=== PATIENT | female | born 1945 | race Caucasian/White ===

== ENCOUNTER 2016-11-02 10:01 | Emergency (ER) | payer MEDICARE, MEDICAID ==
[2016-11-02] MEDS: Sodium Chloride 0.9% 10 ML Syringe FLUSH PRN (10:30)
--- NOTE | 2016-11-02 11:12 | EDM.PDOC ---
ED HISTORY OF PRESENT ILLNESS - General Chief Complaint: Cardiovascular Problem Stated Complaint: [facility] Time Seen by Provider: 11/02/16 10:20 Source of Information: Reports: Patient, EMS, Other ([place] staff) - History of Present Illness INITIAL COMMENTS - FREE TEXT/NARRATIVE: 71-year-old female has been sent here by ambulance for evaluation of increased heart rate and also elevated blood pressure. Apparently her blood pressure has been running in the 180-220 range systolic. she is reported to have not been feeling well last evening sore vitals were checked. Initial blood pressure was 220/100 and then had followup readings of around 200 and 190/100. Rate is reported to have been running greater than 100 although upon EMS arrival she was in the upper 80s. She does have history of hypertension, renal failure on dialysis. Her last dialysis run was yesterday. SHe has no complaints of chest pain difficulty breathing, or abdominal pain nausea vomiting headache or other unusual symptomatology. She states she was coughing a bit more yesterday than usual but that seems to be better today. No recent fever or chills. - Related Data Allergies/ADRs: Allergies Allergy/AdvReac Type Severity Reaction Status Date / Time No Known Allergies Allergy Verified 10/18/16 16:51 Home Meds: Home Meds Cinacalcet [Sensipar] 90 mg PO DAILY 04/30/14 [History] Citalopram [Citalopram HBr] 20 mg PO DAILY 04/30/14 [History] ClonazePAM [KlonoPIN] 0.5 mg PO Q6H PRN 04/30/14 [History] Gabapentin [Neurontin] 400 mg PO TID 04/30/14 [History] Hydrocodone/Acetaminophen [Hydrocodone-Acetaminophen 5-325] 1 tab PO Q6H PRN [History] Ranitidine HCl 300 mg PO BID 04/30/14 [History] Sodium Bicarbonate 650 mg PO TID 04/30/14 [History] Trifluoperazine 5 mg PO DAILY 04/30/14 [History] Omeprazole 20 mg PO DAILY 03/15/16 [History] ClonazePAM [KlonoPIN] 0.5 mg PO BEDTIME 03/16/16 [History] Alpha Lipoic Acid 600 mg PO DAILY 04/11/16 [History] Acetaminophen [Tylenol Arthritis] 650 mg PO Q4HR PRN 06/18/16 [History] Carboxymethylcellulose Sodium [Refresh Tears] 1 drop EYEBOTH TID PRN 06/18/16 [ History] Chlorhexidine Gluconate [Peridex] 1 dose PO BID 06/18/16 [History] Ferrous Sulfate [Iron] 325 mg PO BID 06/18/16 [History] Fluticasone Propionate [Flonase] 1 spray NASBOTH BID PRN 06/18/16 [History] Folic Acid/Vitamin B Comp W-C [Renal Caps Softgel] 1 cap PO DAILY 06/18/16 [ History] Polyethylene Glycol 3350 [MiraLAX] 17 gm PO DAILY PRN 06/18/16 [History] Calcium Acetate 667 mg PO TID 09/08/16 [History] Docusate Sodium [Colace] 2 tab PO DAILY 09/08/16 [History] Eucalyptus Body Lotion 1 gram TOP DAILY 09/08/16 [History] Acetaminophen [Tylenol Arthritis Pain] 650 mg PO Q4H PRN 11/02/16 [History] Lisinopril 20 mg PO DAILY 11/02/16 [History] traMADol HCl [Tramadol HCl] 50 mg PO QID PRN 11/02/16 [History] Past Medical History HEENT History: Reports: Other (see below) Other HEENT History: dry eye syndrome. superficial keratitis Cardiovascular History: Reports: Hypertension Other Cardiovascular History: hypotension Respiratory History: Reports: COPD Gastrointestinal History: Reports: GERD Genitourinary History: Reports: Dialysis Other Genitourinary History: M-W-F Musculoskeletal History: Reports: Osteoarthritis Other Musculoskeletal History: greater trochanter bursitis Neurological History: Reports: Neuropathy, peripheral Psychiatric History: Reports: Anxiety, Depression, Other (see below) Other Psychiatric History: schizoaffective disorder Endocrine/Metabolic History: Reports: Diabetes, type II Hematologic History: Reports: Anemia - Past Surgical History Cardiovascular Surgical History: Reports: Vascular surgery Female Surgical History: Reports: D&C Endocrine Surgical History: Reports: None Neurological Surgical History: Reports: None Social & Family History - Family History Family Medical History: Noncontributory - Tobacco Use Smoking Status *Q: Former Smoker Years of Tobacco use: 50 Packs/Tins Daily: 2.5 Used Tobacco, but Quit: Yes Month Tobacco Last Used: 1996 Second Hand Smoke Exposure: No - Caffeine Use Caffeine Use: Reports: None Other Caffeine Use: 3 cups a day avg - Alcohol Use Days Per Week of Alcohol Use: 0 - Recreational Drug Use Recreational Drug Use: No - Living Situation & Occupation Living situation: Reports: single, assisted living ([place]) Occupation: retired ED ROS GENERAL - Review of Systems Review Of Systems: See Below Constitutional: Denies: fever, chills, diaphoresis HEENT: Reports: No symptoms Respiratory: Denies: shortness of breath, wheezing, pleuritic chest pain Cardiovascular: Denies: Chest pain GI/Abdominal: Denies: Abdominal pain, Nausea, Vomiting Musculoskeletal: Denies: shoulder pain, arm pain Skin: Reports: no symptoms Neurological: Denies: dizziness, headache, trouble speaking ED EXAM, GENERAL - Physical Exam Exam: See Below General Appearance: alert, no apparent distress Eye Exam: bilateral eye: PERRL Nose: normal inspection Throat/Mouth: Normal inspection, Normal oropharynx Head: atraumatic. No: facial swelling Neck: supple, full range of motion. No: lymphadenopathy (L), lymphadenopathy (R ) Respiratory/Chest: no respiratory distress, lungs clear, normal breath sounds, no accessory muscle use Cardiovascular: regular rate, rhythm GI/Abdominal: soft, non tender. No: guarding Back Exam: No: CVA tenderness (L), CVA tenderness (R) Extremities: No: pedal edema, leg pain Neurological: alert, no motor/sensory deficits, other (answering questions appropriately at this time) Skin Exam: Warm, Dry. No: Rash EKG INTERPRETATION EKG Date: 11/02/16 Rhythm: NSR Rate (beats/min): 83 [place]: normal P-wave: present QRS: normal ST-T: other (T-wave inversion in lead III) Course - Vital Signs Last Recorded V/S: Last Vital Signs Temp 97.6 F 11/02/16 10:07 Pulse 91 11/02/16 10:07 Resp 15 11/02/16 10:07 BP 202/87 H 11/02/16 11:29 Pulse Ox 98 11/02/16 10:07 - Orders/Labs/Meds Orders: Active Orders 24 hr Category Date Time Status EKG 12 Lead [EKG Documentation Completion] [RC] STAT Care 11/02/16 10:25 Active Peripheral IV Care [RC] . DIRECTED Care 11/02/16 10:25 Active Sodium Chloride 0.9% [Saline Flush] Med 11/02/16 10:25 Active 10 ml FLUSH ASDIRECTED PRN Peripheral IV Insertion Adult [OM.PC] Stat Oth 11/02/16 10:25 Ordered Medication Orders Sodium Chloride (Saline Flush) 10 ml FLUSH ASDIRECTED PRN PRN Reason: Keep Vein Open Last Admin: 11/02/16 10:30 Dose: 10 ml Labs: Laboratory Tests 11/02/16 11/02/16 Range/Units 10:41 10:41 WBC 4.55 (3.98-10.04) K/mm3 RBC 3.39 L (3.98-5.22) M/mm3 Hgb 10.8 L (11.2-15.7) gm/L Hct 35.7 (34.1-44.9) % MCV 105.3 H (79.4-94.8) fl MCH 31.9 (25.6-32.2) pg MCHC 30.3 L (32.2-35.5) g/dl RDW Std Deviation 67.1 H (36.4-46.3) fL Plt Count 149 L (182-369) K/mm3 MPV 10.7 (9.4-12.3) fl Neut % (Auto) 72.6 H (34.0-71.1) % Lymph % (Auto) 8.8 L (19.3-51.7) % [place] % (Auto) 15.8 H (4.7-12.5) % Eos % (Auto) 2.2 (0.7-5.8) Baso % (Auto) 0.4 (0.1-1.2) % Neut # 3.30 (1.56-6.13) K/mm3 Lymph # 0.40 L (1.18-3.74) K/mm3 [place] # 0.72 H (0.24-0.36) K/mm3 Eos # 0.10 (0.04-0.36) K/mm3 Baso # 0.02 (0.01-0.08) K/mm3 Manual Slide Review Abnormal smear Sodium 137 (136-145) mEq/L Potassium 3.9 (3.5-5.1) mEq/L Chloride 98 (98-107) mEq/L Carbon Dioxide 34 H (21-32) mEq/L Anion Gap 8.9 (5-15) BUN 19 H (7-18) mg/dL Creatinine 3.7 H (0.55-1.02) mg/dL Est Cr Clr Drug Dosing 10.02 mL/min Estimated GFR (MDRD) 12 (>60) mL/min BUN/Creatinine Ratio 5.1 L (14-18) Glucose 111 (83-115) mg/dL Calcium 9.0 (8.5-10.1) mg/dL Total Bilirubin 0.3 (0.2-1.0) mg/dL AST 17 (15-37) U/L ALT 20 (14-59) U/L Alkaline Phosphatase 80 (46-116) U/L Total Protein 6.0 L (6.4-8.2) g/dl Albumin 3.4 (3.4-5.0) g/dl Globulin 2.6 gm/dL Albumin/Globulin Ratio 1.3 (1-2) Meds: Medications Generic Name Dose Route Start Last Admin Trade Name Freq PRN Reason Stop Dose Admin Sodium Chloride 10 ml 11/02/16 10:25 11/02/16 10:30 Saline Flush FLUSH 10 ml ASDIRECTED PRN Administration Keep Vein Open Discontinued Medications Generic Name Dose Route Start Last Admin Trade Name Freq PRN Reason Stop Dose Admin Clonidine HCl 0.1 mg 11/02/16 11:21 11/02/16 11:29 Catapres PO 11/02/16 11:22 0.1 mg ONETIME ONE Administration - Re-Assessments/Exams Free Text/Narrative Re-Assessment/Exam: 11/02/16 12:40. Initial blood pressures were in the 180's to 190's systolic. She then had a reading of 200 systolic. We then did go ahead and give clonidine 0.1 mg by mouth. With that her blood pressure did come down to 157/75. blood pressure now 169/90. She continues to be totally asymptomatic while here in the ED. Heart rate has been running in the upper 80 still low 90s. She currently is eating lunch. no respiratory difficulty. Plan to start her on metoprolol 25 mg twice a day. Prescription has been called in to the medicine shop. Discharge instructions as documented Departure - Departure Time of Disposition: 12:56 Disposition: Home, Self-Care 01 Condition: fair Clinical Impression: Hypertension Qualifiers: Hypertension type: essential hypertension Qualified Code(s): I10 - Essential ( primary) hypertension Referrals: PCP,Unknown [Primary Care Provider] - Forms: ED Department Discharge Additional Instructions: continue current medications, begin metoprolol 25 mg or one half of a 50 mg tablet twice daily, call or followup with Dr. Sharpe as needed - My Orders Last 24 Hours: My Active Orders 11/02/16 10:25 EKG 12 Lead [EKG Documentation Completion] [RC] STAT Peripheral IV Care [RC] . DIRECTED Sodium Chloride 0.9% [Saline Flush] 10 ml FLUSH ASDIRECTED PRN Peripheral IV Insertion Adult [OM.PC] Stat - Assessment/Plan Last 24 Hours: My Active Orders 11/02/16 10:25 EKG 12 Lead [EKG Documentation Completion] [RC] STAT Peripheral IV Care [RC] . DIRECTED Sodium Chloride 0.9% [Saline Flush] 10 ml FLUSH ASDIRECTED PRN Peripheral IV Insertion Adult [OM.PC] Stat
[2016-11-02] MEDS: cloNIDine 0.1 MG Tab PO ONE (11:29)
--- NOTE | 2016-11-02 11:58 | CR ---
Chest: Frontal view of the chest is obtained. Comparison: Previous chest x-ray of 03/17/16. Scoliosis is noted. Heart size is mildly enlarged. Tortuous thoracic aorta is seen. Lungs are clear with no acute infiltrates. Impression: 1. Scoliosis. Mild cardiomegaly. 2. Nothing acute is identified on frontal chest x-ray. Diagnostic code #2
[2016-11-02 13:20] VITALS: BP 124/85
== END 2016-11-02 13:18 | disposition home or self-care (01) ==
LOC: JD.ED 10:01
DX: I10 Essential (primary) hypertension (principal); J44.9 Chronic obstructive pulmonary disease, unspecified; K21.9 Gastro-esophageal reflux disease without esophagitis; F41.9 Anxiety disorder, unspecified; F32.9 Major depressive disorder, single episode, unspecified; E11.9 Type 2 diabetes mellitus without complications; Z98.890 Other specified postprocedural states; Z79.899 Other long term (current) drug therapy; Z87.891 Personal history of nicotine dependence
CPT/HCPCS: 36415; 71010; 80053; 85025; 93005; 99285; A9270; J7050; 99283

== ENCOUNTER 2016-11-06 08:33 | Emergency (ER) | payer MEDICARE, MEDICAID ==
[2016-11-06 08:50] VITALS: BP 171/84
--- NOTE | 2016-11-06 09:01 | EDM.PDOC ---
ED HPI ANIMAL BITE - General Time Seen by Provider: 11/06/16 08:50 Chief Complaint: Bite:Animal, Insect Stated Complaint: DIZZY Source of Information: Reports: Patient, RN notes reviewed - History of Present Illness INITIAL COMMENTS - FREE TEXT/NARRATIVE: 71-year-old female has come in with concerns of nonspecific dizziness having suffered scratch injury to her left arm and right leg yesterday. Because she feels a bit dizzy this morning she is worried about infection or "blood poisoning". she is a renal dialysis patient. She did not get hit by the cat. Is up-to-date with immunizations. There's been no major swelling erythema or proximal streaking regarding these injuries. She has no chest or abdominal pain this morning. No nausea or vomiting. - Related Data Allergies Allergy/AdvReac Type Severity Reaction Status Date / Time No Known Allergies Allergy Verified 11/06/16 08:46 Home Meds: Home Meds Cinacalcet [Sensipar] 90 mg PO DAILY 04/30/14 [History] Citalopram [Citalopram HBr] 20 mg PO DAILY 04/30/14 [History] ClonazePAM [KlonoPIN] 0.5 mg PO Q6H PRN 04/30/14 [History] Gabapentin [Neurontin] 400 mg PO TID 04/30/14 [History] Hydrocodone/Acetaminophen [Hydrocodone-Acetaminophen 5-325] 1 tab PO Q6H PRN [History] Ranitidine HCl 300 mg PO BID 04/30/14 [History] Sodium Bicarbonate 650 mg PO TID 04/30/14 [History] Trifluoperazine 5 mg PO DAILY 04/30/14 [History] Omeprazole 20 mg PO DAILY 03/15/16 [History] ClonazePAM [KlonoPIN] 0.5 mg PO BEDTIME 03/16/16 [History] Alpha Lipoic Acid 600 mg PO DAILY 04/11/16 [History] Acetaminophen [Tylenol Arthritis] 650 mg PO Q4HR PRN 06/18/16 [History] Carboxymethylcellulose Sodium [Refresh Tears] 1 drop EYEBOTH TID PRN 06/18/16 [ History] Chlorhexidine Gluconate [Peridex] 1 dose PO BID 06/18/16 [History] Ferrous Sulfate [Iron] 325 mg PO BID 06/18/16 [History] Fluticasone Propionate [Flonase] 1 spray NASBOTH BID PRN 06/18/16 [History] Folic Acid/Vitamin B Comp W-C [Renal Caps Softgel] 1 cap PO DAILY 06/18/16 [ History] Polyethylene Glycol 3350 [MiraLAX] 17 gm PO DAILY PRN 06/18/16 [History] Calcium Acetate 667 mg PO TID 09/08/16 [History] Docusate Sodium [Colace] 2 tab PO DAILY 09/08/16 [History] Eucalyptus Body Lotion 1 gram TOP DAILY 09/08/16 [History] Acetaminophen [Tylenol Arthritis Pain] 650 mg PO Q4H PRN 11/02/16 [History] Lisinopril 20 mg PO DAILY 11/02/16 [History] traMADol HCl [Tramadol HCl] 50 mg PO QID PRN 11/02/16 [History] Past Medical History HEENT History: Reports: Impaired vision, Other (see below) Other HEENT History: dry eye syndrome. superficial keratitis. Wears glasses Cardiovascular History: Reports: Hypertension Other Cardiovascular History: hypotension Respiratory History: Reports: COPD Gastrointestinal History: Reports: GERD Genitourinary History: Reports: Dialysis Other Genitourinary History: M-W-F Musculoskeletal History: Reports: Osteoarthritis Other Musculoskeletal History: greater trochanter bursitis Neurological History: Reports: Neuropathy, peripheral Psychiatric History: Reports: Anxiety, Depression, Other (see below) Other Psychiatric History: schizoaffective disorder Endocrine/Metabolic History: Reports: Diabetes, type II Hematologic History: Reports: Anemia - Past Surgical History Head Surgeries/Procedures: Reports: Shunt Cardiovascular Surgical History: Reports: Vascular surgery Female Surgical History: Reports: D&C Endocrine Surgical History: Reports: None Neurological Surgical History: Reports: None Social & Family History - Family History Family Medical History: Noncontributory - Tobacco Use Smoking Status *Q: Former Smoker Years of Tobacco use: 50 Packs/Tins Daily: 2.5 Used Tobacco, but Quit: Yes Month Tobacco Last Used: 2001 Second Hand Smoke Exposure: No - Caffeine Use Caffeine Use: Reports: None Other Caffeine Use: 3 cups a day avg - Alcohol Use Days Per Week of Alcohol Use: 0 - Recreational Drug Use Recreational Drug Use: No - Living Situation & Occupation Living situation: Reports: single, assisted living ([place]) Occupation: retired ED ROS GENERAL - Review of Systems Review Of Systems: See Below Constitutional: Denies: fever, chills, diaphoresis HEENT: Reports: No symptoms Respiratory: Denies: shortness of breath Cardiovascular: Denies: Chest pain GI/Abdominal: Denies: Abdominal pain, Nausea, Vomiting Musculoskeletal: Reports: other (cat scratch injuries to left forearm and right lower leg) Skin: Reports: other (no major swelling erythema or proximal streaking) Neurological: Reports: other (no acute symptoms) ED EXAM, ANIMAL BITE - Physical Exam Exam: See Below General Appearance: alert, no apparent distress Eye Exam: bilateral eye: PERRL Throat/Mouth: Normal inspection Head: atraumatic Neck: supple Respiratory/Chest: no respiratory distress, lungs clear Cardiovascular: regular rate, rhythm Extremities: other (several very superficial abrasions left forearm, shallow, not gaping and several small abrasion injuries to the right lower leg, no major swelling erythema or proximal streaking. No evidence for bite injury) Neurological: alert, no motor/sensory deficits Skin Exam: Warm/dry Course - Vital Signs Last Recorded V/S: Last Vital Signs Temp 98.2 F 11/06/16 08:46 Pulse 69 11/06/16 08:46 Resp 13 11/06/16 08:46 BP 171/84 H 11/06/16 08:46 Pulse Ox 96 11/06/16 08:46 - Orders/Labs/Meds Labs: Laboratory Tests 11/06/16 Range/Units 08:47 POC Glucose 141 H (83-110) mg/dL - Re-Assessments/Exams Free Text/Narrative Re-Assessment/Exam: 11/06/16 09:35 patient is afebrile, vitals are stable, no evidence for infection at this time Departure - Departure Time of Disposition: 08:59 Disposition: Home, Self-Care 01 Condition: fair Clinical Impression: Abrasion Instructions: Abrasion, [id number] Referrals: Noah Sharpe MD [Primary Care Provider] - Forms: ED Department Discharge Additional Instructions: Wound care intr., antibiotic ointment 2 to 3 times daily, have rechecked any sign of infection, especially for any red streaking up the arm, return to ED as needed
== END 2016-11-06 09:30 | disposition home or self-care (01) ==
LOC: JD.ED 08:33
DX: S50.812A Abrasion of left forearm, initial encounter (principal); S80.811A Abrasion, right lower leg, initial encounter; I10 Essential (primary) hypertension; J44.9 Chronic obstructive pulmonary disease, unspecified; K21.9 Gastro-esophageal reflux disease without esophagitis; M19.90 Unspecified osteoarthritis, unspecified site; F41.9 Anxiety disorder, unspecified; F32.9 Major depressive disorder, single episode, unspecified; E11.9 Type 2 diabetes mellitus without complications; D64.9 Anemia, unspecified; Z79.899 Other long term (current) drug therapy; Z87.891 Personal history of nicotine dependence; W55.03XA Scratched by cat, initial encounter
CPT/HCPCS: 82962; 99282; 99283

== ENCOUNTER 2016-11-30 16:42 | Emergency (ER) | payer MEDICARE, MEDICAID ==
[2016-11-30 16:50] VITALS: BP 215/91
[2016-11-30] MEDS ORDERED: Sodium Chloride 0.9% 10 ML Syringe FLUSH PRN (17:19)
--- NOTE | 2016-11-30 17:20 | EDM.PDOC ---
ED HPI GI/ABDOMINAL - General Chief Complaint: Abdominal Pain Stated Complaint: [facility] Time Seen by Provider: 11/30/16 17:00 Source of Information: Reports: Patient, RN notes reviewed History Limitations: Reports: No limitations - History of Present Illness INITIAL COMMENTS - FREE TEXT/NARRATIVE: 71 year old female presents to the ED today for abdominal pain that started around noon today. The patient says her entire abdomen hurts. She lives at the [place] assisted [facility]. The patient is unable to provider any additional history. I called and spoke to the nurse at [place]. Nursing report as follows: patient complained of heart burn at around 1245 this afternoon. They gave her mylanta which no improvement. The patient has frequent heart burn that is usually relieved by mylanta. They offered tums but patient refused and requested to come to the hospital. No nausea, vomiting or diarrhea. Last BM unknown. The patient's anxiety has been worsening over the past couple weeks. She is requesting to come to the hospital almost every day for various complaints. They gave her clonazepam at 4pm. She's had some falls, none today. They are trying to contact the son to discuss senior living placement as they feel her care is exceeding their capabilities. She has a history of GERD, GI bleed, schizophrenia, type II diabetes and renal failure with dialysis. - Related Data Allergies/ADRs: Allergies Allergy/AdvReac Type Severity Reaction Status Date / Time No Known Allergies Allergy Verified 11/30/16 16:50 Home Meds: Home Meds Cinacalcet [Sensipar] 90 mg PO DAILY 04/30/14 [History] Gabapentin [Neurontin] 400 mg PO TID 04/30/14 [History] Hydrocodone/Acetaminophen [Hydrocodone-Acetaminophen 5-325] 1 tab PO Q6H PRN [History] Ranitidine HCl 300 mg PO BID 04/30/14 [History] Sodium Bicarbonate 650 mg PO TID 04/30/14 [History] Trifluoperazine 5 mg PO DAILY 04/30/14 [History] Omeprazole 20 mg PO DAILY 03/15/16 [History] Carboxymethylcellulose Sodium [Refresh Tears] 1 drop EYEBOTH TID PRN 06/18/16 [ History] Folic Acid/Vitamin B Comp W-C [Renal Caps Softgel] 1 cap PO DAILY 06/18/16 [ History] Polyethylene Glycol 3350 [MiraLAX] 17 gm PO DAILY PRN 06/18/16 [History] Eucalyptus Body Lotion 1 gram TOP DAILY 09/08/16 [History] Acetaminophen [Tylenol Arthritis Pain] 650 mg PO Q4H PRN 11/02/16 [History] traMADol HCl [Tramadol HCl] 50 mg PO QID PRN 11/02/16 [History] Cephalexin [Keflex] 500 mg PO TID #21 cap 11/30/16 [Rx] Metoprolol Tartrate 50 mg PO BID 11/30/16 [History] risperiDONE [Risperdal] 25 mg IM ASDIRECTED 11/30/16 [History] Past Medical History HEENT History: Reports: Impaired vision, Other (see below) Other HEENT History: dry eye syndrome. superficial keratitis. Wears glasses Cardiovascular History: Reports: Hypertension Other Cardiovascular History: hypotension Respiratory History: Reports: COPD Gastrointestinal History: Reports: GERD Genitourinary History: Reports: Dialysis Other Genitourinary History: M-W-F Musculoskeletal History: Reports: Osteoarthritis Other Musculoskeletal History: greater trochanter bursitis Neurological History: Reports: Neuropathy, peripheral Psychiatric History: Reports: Anxiety, Depression, Other (see below) Other Psychiatric History: schizoaffective disorder Endocrine/Metabolic History: Reports: Diabetes, type II Hematologic History: Reports: Anemia - Past Surgical History Head Surgeries/Procedures: Reports: Shunt Cardiovascular Surgical History: Reports: Vascular surgery Female Surgical History: Reports: D&C Endocrine Surgical History: Reports: None Neurological Surgical History: Reports: None Social & Family History - Family History Family Medical History: Noncontributory - Tobacco Use Smoking Status *Q: Never Smoker Years of Tobacco use: 50 Packs/Tins Daily: 2.5 Used Tobacco, but Quit: Yes Month Tobacco Last Used: 2001 Second Hand Smoke Exposure: No - Caffeine Use Caffeine Use: Reports: None Other Caffeine Use: 3 cups a day avg - Alcohol Use Days Per Week of Alcohol Use: 0 - Recreational Drug Use Recreational Drug Use: No - Living Situation & Occupation Living situation: Reports: single, assisted living ([place]) Occupation: retired ED ROS GENERAL - Review of Systems Review Of Systems: See Below Constitutional: Reports: decreased appetite. Denies: fever, chills, diaphoresis Respiratory: Reports: No Symptoms. Denies: Shortness of Breath, Cough Cardiovascular: Reports: No symptoms. Denies: Chest pain GI/Abdominal: Reports: Abdominal pain, Decreased appetite. Denies: Diarrhea, Nausea, Vomiting : Reports: no symptoms. Denies: dysuria, flank pain, frequency ED EXAM, GI/ABD - Physical Exam Exam: See Below Exam Limited By: No limitations General Appearance: alert, WD/WN, no apparent distress Respiratory/Chest: no respiratory distress, lungs clear, normal breath sounds, chest non-tender Cardiovascular: normal peripheral pulses, regular rate, rhythm, no murmur GI/Abdominal: normal bowel sounds, soft, non tender, no organomegaly, no distention. No: guarding, rebound, rigidity Back Exam: normal inspection, full range of motion Neurological: alert, normal cognition, no motor/sensory deficits Psychiatric: anxious (mild) Skin Exam: Warm, Dry, Intact Course - Vital Signs Last Recorded V/S: Last Vital Signs Temp 98 F 11/30/16 16:47 Pulse 73 11/30/16 16:49 Resp 17 11/30/16 16:49 BP 215/91 H 11/30/16 16:49 Pulse Ox 98 11/30/16 16:49 - Orders/Labs/Meds Orders: Active Orders 24 hr Category Date Time Status Enema [RC] ASDIRECTED Care 11/30/16 18:42 Active Peripheral IV Care [RC] . DIRECTED Care 11/30/16 17:19 Active Abdomen 2V AP Flat Upright [CR] Stat Exams 11/30/16 17:19 Taken CULTURE URINE [RM] Stat Lab 11/30/16 18:18 Received Sodium Chloride 0.9% [Saline Flush] Med 11/30/16 17:19 Active 10 ml FLUSH ASDIRECTED PRN Peripheral IV Insertion Adult [OM.PC] Stat Oth 11/30/16 17:19 Ordered Medication Orders Sodium Chloride (Saline Flush) 10 ml FLUSH ASDIRECTED PRN PRN Reason: Keep Vein Open Last Admin: 11/30/16 17:54 Dose: 10 ml Labs: Laboratory Tests 11/30/16 11/30/16 11/30/16 Range/Units 17:55 17:55 18:18 WBC 5.37 (3.98-10.04) K/mm3 RBC 3.66 L (3.98-5.22) M/mm3 Hgb 11.7 (11.2-15.7) gm/L Hct 38.4 (34.1-44.9) % MCV 104.9 H (79.4-94.8) fl MCH 32.0 (25.6-32.2) pg MCHC 30.5 L (32.2-35.5) g/dl RDW Std Deviation 59.6 H (36.4-46.3) fL Plt Count 152 L (182-369) K/mm3 MPV 11.1 (9.4-12.3) fl Neut % (Auto) 64.3 (34.0-71.1) % Lymph % (Auto) 15.8 L (19.3-51.7) % Stokes % (Auto) 17.1 H (4.7-12.5) % Eos % (Auto) 1.9 (0.7-5.8) Baso % (Auto) 0.7 (0.1-1.2) % Neut # (Auto) 3.45 (1.56-6.13) K/mm3 Lymph # (Auto) 0.85 L (1.18-3.74) K/mm3 Stokes # (Auto) 0.92 H (0.24-0.36) K/mm3 Eos # (Auto) 0.10 (0.04-0.36) K/mm3 Baso # (Auto) 0.04 (0.01-0.08) K/mm3 Manual Slide Review Abnormal smear Sodium 140 (136-145) mEq/L Potassium 4.1 (3.5-5.1) mEq/L Chloride 101 (98-107) mEq/L Carbon Dioxide 33 H (21-32) mEq/L Anion Gap 10.1 (5-15) BUN 25 H (7-18) mg/dL Creatinine 4.4 H (0.55-1.02) mg/dL Est Cr Clr Drug Dosing 8.85 mL/min Estimated GFR (MDRD) 10 (>60) mL/min BUN/Creatinine Ratio 5.7 L (14-18) Glucose 103 (83-115) mg/dL Calcium 9.2 (8.5-10.1) mg/dL Total Bilirubin 0.4 (0.2-1.0) mg/dL AST 18 (15-37) U/L ALT 31 (14-59) U/L Alkaline Phosphatase 94 (46-116) U/L Total Protein 6.4 (6.4-8.2) g/dl Albumin 3.6 (3.4-5.0) g/dl Globulin 2.8 gm/dL Albumin/Globulin Ratio 1.3 (1-2) Lipase 188 (73-393) U/L Urine Color Light yellow (Yellow) Urine Appearance Clear (Clear) Urine pH 7.5 (5.0-8.0) Ur Specific [place] 1.020 (1.005-1.030) Urine Protein 3+ H (Negative) Urine Glucose (UA) Negative (Negative) Urine Ketones Negative (Negative) Urine Occult Blood 1+ H (Negative) Urine Nitrite Negative (Negative) Urine Bilirubin Negative (Negative) Urine Urobilinogen 0.2 (0.2-1.0) Ur Leukocyte Esterase 1+ H (Negative) Urine RBC 0-5 (0-5) /hpf Urine WBC 5-10 H (0-5) /hpf Ur Squamous Epith Cells 0-5 (0-5) /hpf Urine Bacteria Rare (FEW) /hpf Urine Mucus Not seen (FEW) /hpf Meds: Medications Generic Name Dose Route Start Last Admin Trade Name Freq PRN Reason Stop Dose Admin Sodium Chloride 10 ml 11/30/16 17:19 11/30/16 17:54 Saline Flush FLUSH 10 ml ASDIRECTED PRN Administration Keep Vein Open Discontinued Medications Generic Name Dose Route Start Last Admin Trade Name Freq PRN Reason Stop Dose Admin Magnesium Citrate 300 ml 11/30/16 20:07 Citrate Of Magnesia PO 11/30/16 20:08 ONETIME ONE - Re-Assessments/Exams Free Text/Narrative Re-Assessment/Exam: CBC reveals normal WBC and H&H. CMP reveals normal sodium and potassium. BUN is 25 and creatinine is 4.4. Lipase normal. UA positive for UTI. Sent for culture. Flat and upright abdominal x-ray reveals a large amount of stool within the colon. Reviewed with Dr. Mccarty who recommends soap suds enema and citroma. He also recommends treating with keflex 500mg PO TID as this is safe in renal failure. She was hypertensive on arrival. At discharge the BP was 180 systolic. She is due for dialysis in the morning. No medications will be adjusted. Patient has great results with soap suds enema. Her abdominal pain and anxiety have improved. She does not warrant admission at this time and she is requesting to go home. Will discharge back to [place]. Departure - Departure Time of Disposition: 20:06 Disposition: Home, Self-Care 01 Condition: good Clinical Impression: Constipation Qualifiers: Constipation type: unspecified constipation type Qualified Code(s): K59.00 - Constipation, unspecified UTI (urinary tract infection) Qualifiers: Urinary tract infection type: acute cystitis Hematuria presence: with hematuria Qualified Code(s): N30.01 - Acute cystitis with hematuria Prescriptions: Cephalexin [Keflex] 500 mg PO TID #21 cap Referrals: Noah Sharpe MD [Primary Care Provider] - Forms: ED Department Discharge Additional Instructions: Magnesium Citrate 1/2 bottle tonight, repeat the other 1/2 bottle in the morning Push fluids Continue anxiety medications as prescribed Urinalysis revealed UTI. Start Cephalexin 500mg 3 times a day. This was e- prescribed to the [facility]. Follow-up with primary care provider in 3-4 days Return to ER with worsening symptoms or additional concerns. - My Orders Last 24 Hours: My Active Orders 11/30/16 17:19 Peripheral IV Care [RC] . DIRECTED Abdomen 2V AP Flat Upright [CR] Stat Sodium Chloride 0.9% [Saline Flush] 10 ml FLUSH ASDIRECTED PRN Peripheral IV Insertion Adult [OM.PC] Stat 11/30/16 18:18 CULTURE URINE [RM] Stat 11/30/16 18:42 Enema [RC] ASDIRECTED - Assessment/Plan Last 24 Hours: My Active Orders 11/30/16 17:19 Peripheral IV Care [RC] . DIRECTED Abdomen 2V AP Flat Upright [CR] Stat Sodium Chloride 0.9% [Saline Flush] 10 ml FLUSH ASDIRECTED PRN Peripheral IV Insertion Adult [OM.PC] Stat 11/30/16 18:18 CULTURE URINE [RM] Stat 11/30/16 18:42 Enema [RC] ASDIRECTED
[2016-11-30] MEDS ORDERED: Magnesium Citrate Solution 296 ML Bottle PO ONE (20:07)
--- NOTE | 2016-12-01 08:47 | CR ---
Abdomen: Supine and upright views of the abdomen were obtained. Comparison: No previous abdominal x-ray. Four calcified gallstones are seen within the upper right abdomen. Scoliosis and mild degenerative change is noted within the spine. Mild joint space narrowing is noted within the right hip. Bowel gas pattern appears normal. No free air is seen. Impression: 1. Nonspecific two-view abdominal x-ray with incidental findings as noted above. Diagnostic code #2
== END 2016-11-30 20:25 | disposition home or self-care (01) ==
LOC: JD.ED 16:42
DX: K59.00 Constipation, unspecified (principal); N30.01 Acute cystitis with hematuria; I10 Essential (primary) hypertension; J44.9 Chronic obstructive pulmonary disease, unspecified; K21.9 Gastro-esophageal reflux disease without esophagitis; M19.90 Unspecified osteoarthritis, unspecified site; E11.9 Type 2 diabetes mellitus without complications; F32.9 Major depressive disorder, single episode, unspecified; F41.9 Anxiety disorder, unspecified; D64.9 Anemia, unspecified; F20.9 Schizophrenia, unspecified; Z99.2 Dependence on renal dialysis; Z79.899 Other long term (current) drug therapy; Z87.891 Personal history of nicotine dependence
CPT/HCPCS: 36415; 74020; 80053; 81001; 83690; 85025; 87086; 99284; J7050; 99283; 99285; P9612

== ENCOUNTER 2016-12-01 16:51 | Emergency (ER) | payer MEDICARE, MEDICAID ==
--- NOTE | 2016-12-01 17:54 | EDM.PDOC ---
ED HPI Trauma - General Chief Complaint: Upper Extremity Injury/Pain Stated Complaint: ARM BLEEDIND POST KDU Time Seen by Provider: 12/01/16 17:49 Source: Reports: Patient History Limitations: Reports: No limitations - History of Present Illness INITIAL COMMENTS - FREE TEXT/NARRATIVE: 71-year-old female brought to the ED from the dialysis unit due to persistent bleeding from her AV fistula left upper arm. The bleeding continued after dialysis run and therefore she was brought to the ED for further evaluation. She was actively bleeding from the puncture wounds in the fistula itself. It was wrapped with gauze and pressure applied and we're able to get it to stop. Symptom Onset Date: 12/01/16 Symptom Onset Time: 04:30 Occurred When: this afternoon Occurred Where: other (After dialysis run today she was returned to [place] where was noted that she had active bleeding from her fistula left upper arm.) Method of Injury: other (Puncture wounds to her ED fistula for dialysis left arm ) Severity: moderate Pain/Injury Location: Reports: upper extremity, left Consciousness: Denies: no loss of consciousness, brief (seconds), prolonged ( minutes), remembers incident, remembers coming to hosp Associated Symptoms: Reports: no other symptoms Allergies/ADRs: Allergies No Known Allergies Allergy (Verified 12/01/16 17:01) Home Medications: Ambulatory Orders Cinacalcet [Sensipar] 90 mg PO DAILY 04/30/14 [Confirmed 11/30/16] Gabapentin [Neurontin] 400 mg PO TID 04/30/14 [Confirmed 11/30/16] Hydrocodone/Acetaminophen [Hydrocodone-Acetaminophen 5-325] 1 tab PO Q6H PRN [Confirmed 11/30/16] Ranitidine HCl 300 mg PO BID 04/30/14 [Confirmed 11/30/16] Sodium Bicarbonate 650 mg PO TID 04/30/14 [Confirmed 11/30/16] Trifluoperazine 5 mg PO DAILY 04/30/14 [Confirmed 11/30/16] Omeprazole 20 mg PO DAILY 03/15/16 [Confirmed 11/30/16] Carboxymethylcellulose Sodium [Refresh Tears] 1 drop EYEBOTH TID PRN 06/18/16 [ Confirmed 11/30/16] Folic Acid/Vitamin B Comp W-C [Renal Caps Softgel] 1 cap PO DAILY 06/18/16 [ Confirmed 11/30/16] Polyethylene Glycol 3350 [MiraLAX] 17 gm PO DAILY PRN 06/18/16 [Confirmed ] Eucalyptus Body Lotion 1 gram TOP DAILY 09/08/16 [Confirmed 11/30/16] Acetaminophen [Tylenol Arthritis Pain] 650 mg PO Q4H PRN 11/02/16 [Confirmed ] traMADol HCl [Tramadol HCl] 50 mg PO QID PRN 11/02/16 [Confirmed 11/30/16] Cephalexin [Keflex] 500 mg PO TID #21 cap 11/30/16 Metoprolol Tartrate 50 mg PO BID 11/30/16 [Confirmed 11/30/16] risperiDONE [Risperdal] 25 mg IM ASDIRECTED 11/30/16 [Confirmed 11/30/16] Past Medical History HEENT History: Reports: Impaired vision, Other (see below) Other HEENT History: dry eye syndrome. superficial keratitis. Wears glasses Cardiovascular History: Reports: Hypertension Other Cardiovascular History: hypotension Respiratory History: Reports: COPD Gastrointestinal History: Reports: GERD Genitourinary History: Reports: Dialysis Other Genitourinary History: M-W-F Musculoskeletal History: Reports: Osteoarthritis Other Musculoskeletal History: greater trochanter bursitis Neurological History: Reports: Neuropathy, peripheral Psychiatric History: Reports: Anxiety, Depression, Other (see below) Other Psychiatric History: schizoaffective disorder Endocrine/Metabolic History: Reports: Diabetes, type II Hematologic History: Reports: Anemia - Past Surgical History Head Surgeries/Procedures: Reports: Shunt Cardiovascular Surgical History: Reports: Vascular surgery Female Surgical History: Reports: D&C Endocrine Surgical History: Reports: None Neurological Surgical History: Reports: None Social & Family History - Family History Family Medical History: Noncontributory - Tobacco Use Smoking Status *Q: Unknown Ever Smoked Years of Tobacco use: 50 Packs/Tins Daily: 2.5 Used Tobacco, but Quit: Yes Month Tobacco Last Used: 2001 Second Hand Smoke Exposure: No - Caffeine Use Caffeine Use: Reports: None Other Caffeine Use: 3 cups a day avg - Alcohol Use Days Per Week of Alcohol Use: 0 - Recreational Drug Use Recreational Drug Use: No - Living Situation & Occupation Living situation: Reports: single, assisted living ([place]) Occupation: retired Review of Systems - Review of Systems Review Of Systems: See Below Constitutional: Denies: chills, diaphoresis, fever, weakness Eyes: Reports: other (Her eyesight. No vision changes recently.) Ears: Reports: no symptoms Nose: Reports: no symptoms Mouth/Throat: Reports: no symptoms Respiratory: Reports: Shortness of Breath, Cough (Occasional nonproductive cough ). Denies: Wheezing (On exertion.), Pleuritic Chest Pain Cardiovascular: Denies: chest pain, irregular heart rate, lightheadedness, palpitations, syncope GI/Abdominal: Reports: No symptoms Genitourinary: Reports: other (Rarely makes bunch urine anymore.) Musculoskeletal: Reports: back pain Skin: Reports: bruising Neurological: Reports: No Symptoms (Bruises easily) Psychiatric: Reports: no symptoms Trauma Exam - Physical Exam Exam: See Below Exam Limited By: No limitations General Appearance: Reports: alert, anxious, mild distress Head: Reports: atraumatic, normocephalic Throat/Mouth: Reports: Normal inspection, Normal lips, Normal oropharynx Cardiovascular: Reports: normal peripheral pulses, regular rate, rhythm, no edema Extremities: Reports: other (Most of the attention was paid to the AV fistula which is in the mid of her left arm. It was actively bleeding from the mid biceps area. Was wrapped with a tight compressive dressing and we're able to get the bleeding to stop. Totally dressed with bacitracin Adaptic and likely new. This could stay on until the next dialysis run on Sunday. If he loosens her falls off and it may stay off.) Skin: Reports: Pallor - Mariam Coma Score Best Eye Response ([place]): (4) open spontaneously (Mild) Best Verbal Response ([place]): (5) oriented Best Motor Response ([place]): (6) obeys commands [place] Total: 15 Course - Vital Signs Last Recorded V/S: Last Vital Signs Temp 37.2 C 12/01/16 17:01 Pulse 71 12/01/16 17:01 Resp 16 12/01/16 17:01 BP 188/77 H 12/01/16 17:01 Pulse Ox 98 12/01/16 17:01 - Radiology Interpretation Free Text/Narrative:: 71-year-old female brought to the ED for evaluation of persistent bleeding from AV fistula site left upper arm. She finished her dialysis run about 1600 hours today. She got back to [place] was appreciation is actively bleeding from the AV fistula site. She was sent back to the ED for further evaluation and management. With firm compressive dressing we will to get the bleeding to stop. She was monitored for 45 minutes or so and the bleeding stopped. I then had bacitracin Telfa dressing and light Kumar applied to the wound so that it could be protected. The dressing should remain in place until the next dialysis run or if it happens to slide off all off etc. it may remain off. Departure - Departure Time of Disposition: 17:56 Disposition: Home, Self-Care 01 Condition: fair Clinical Impression: Hemorrhage of arteriovenous fistula Qualifiers: Encounter type: initial encounter Qualified Code(s): T82.838A - Hemorrhage due to vascular prosthetic devices, implants and grafts, initial encounter Forms: ED Department Discharge Additional Instructions: Evaluation in the emergency day in regards to active bleeding from AV fistula wound left left arm post dialysis run today. We'll was appreciated to be actively bleeding when she returned to [place] after having dialysis run at placed at 1600 hours today. The wound was placed and a pressure bandage dressing and we were able to get the bleeding to stop. Bacitracin Telfa dressing and Kumar placed on the wound protected from further bump in her pain to cause her to bleed further. Dressing to remain in place until dialysis run on Sunday but if it happens to slide off of a fall off over the weekend, it may stay off.
== END 2016-12-01 19:00 | disposition home or self-care (01) ==
LOC: JD.ED 16:51
CPT/HCPCS: 99282; 99284

== ENCOUNTER 2016-12-05 10:09 | Inpatient (IN) | payer MEDICARE, MEDICAID ==
[2016-12-05] MEDS ORDERED: Sodium Chloride 0.9% 10 ML Syringe FLUSH PRN (10:18)
[2016-12-05] MEDS ORDERED: hydrALAZINE 20 MG/ML SDV IVPUSH ONE (10:20)
[2016-12-05] MEDS ORDERED: Sodium Chloride 0.9% 1,000 ML IV SCH (10:30)
--- NOTE | 2016-12-05 11:13 | CT ---
Head CT Technique: Multiple axial sections through the brain were obtained. Intravenous contrast was not utilized. Comparison: No previous intracranial imaging. Findings: Ventricles along with basal cisterns and sulci over the convexities are mildly prominent. 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 Minimal diminished density is noted within the periventricular white matter compatible with small vessel ischemic demyelination change. No other abnormal parenchymal densities are seen. No evidence of intracranial hemorrhage. No midline shift or mass effect is seen. Bone window settings were reviewed which shows minimal mucosal thickening within the sphenoid sinus which is felt to be incidental. Other sinuses are clear. No acute calvarial abnormality is seen. Impression: 1. Sinus finding felt to be incidental. 2. Mild senescent change as described above. 3. No acute intracranial abnormality is seen. Diagnostic code #2
[2016-12-05] MEDS ORDERED: Ondansetron 4 MG/2 ML SDV IVPUSH ONE (11:40)
--- NOTE | 2016-12-05 12:03 | EDM.PDOC ---
ED HPI ALTERED MENTAL STATUS - General Chief Complaint: Neurological Problem Stated Complaint: [facility] Time Seen by Provider: 12/05/16 10:18 Source of Information: Reports: Patient, EMS, half-way records History Limitations: Reports: No limitations - History of Present Illness INITIAL COMMENTS - FREE TEXT/NARRATIVE: The patient presents from [facility] with high blood pressure, problems speaking and generalized weakness. The patient's blood pressure was elevated this morning to 220 systolic. She was given her metropolol 25mg and it went down to 205. She also has some generalized weakness that has been getting worse. She needs 2 person assist for some things. That is more services then [facility] can provide. She also has schizophrenia and she will be confused when she talks. That is worse today. She is in renal failure and is on dialysis. She denies any headache, fever, chills, cough, chest pain, shortness of breath, nausea, vomiting, abdominal pain, numbness or weakness. Baseline Mental Status: Reports: alert/confused Symptom Onset Date: 12/05/16 Symptom Onset Time: 07:00 Timing/Duration: Reports: Hour(s):, Other (Woke up with it this morning) Context: Reports: chronic/long standing. Denies: new environment, new/acute, new meds, change medication regime, recent infection, new trauma, drug/ETOH abuse Treatments [employer]: Reports: oxygen - Related Data Allergies/ADRs: Allergies No Known Allergies Allergy (Verified 12/05/16 10:22) Home Meds: Home Meds Cinacalcet [Sensipar] 90 mg PO DAILY 04/30/14 [History] Gabapentin [Neurontin] 400 mg PO TID 04/30/14 [History] Hydrocodone/Acetaminophen [Hydrocodone-Acetaminophen 5-325] 1 tab PO Q6H PRN [History] Ranitidine HCl 300 mg PO BID 04/30/14 [History] Sodium Bicarbonate 650 mg PO TID 04/30/14 [History] Trifluoperazine 5 mg PO BEDTIME 04/30/14 [History] Omeprazole 20 mg PO DAILY 03/15/16 [History] Carboxymethylcellulose Sodium [Refresh Tears] 1 drop EYEBOTH TID PRN 06/18/16 [ History] Folic Acid/Vitamin B Comp W-C [Renal Caps Softgel] 1 cap PO DAILY 06/18/16 [ History] Polyethylene Glycol 3350 [MiraLAX] 17 gm PO DAILY PRN 06/18/16 [History] Eucalyptus Body Lotion 1 gram TOP DAILY 09/08/16 [History] Acetaminophen [Tylenol Arthritis Pain] 650 mg PO Q4H PRN 11/02/16 [History] traMADol HCl [Tramadol HCl] 50 mg PO QID PRN 11/02/16 [History] Cephalexin [Keflex] 500 mg PO TID #21 cap 11/30/16 [Rx] Metoprolol Tartrate 25 mg PO BID 11/30/16 [History] risperiDONE [Risperdal] 25 mg IM ASDIRECTED 11/30/16 [History] Alpha Lipoic Acid 600 mg PO DAILY 12/05/16 [History] Calcium Acetate 667 mg PO TID 12/05/16 [History] Citalopram Hydrobromide [Citalopram HBr] 20 mg PO DAILY 12/05/16 [History] ClonazePAM [KlonoPIN] 0.5 mg PO BID 12/05/16 [History] ClonazePAM [KlonoPIN] 0.5 mg PO Q4H PRN 12/05/16 [History] Docusate Sodium [Colace] 200 mg PO DAILY 12/05/16 [History] Ferrous Sulfate 325 mg PO BID 12/05/16 [History] Fluticasone Propionate [Flonase] 1 spray NASBOTH BID PRN 12/05/16 [History] Lisinopril [Zestril] 40 mg PO DAILY 12/05/16 [History] Mylanta. 2 tsp PO Q4H PRN 12/05/16 [History] Past Medical History HEENT History: Reports: Impaired vision, Other (see below) Other HEENT History: dry eye syndrome. superficial keratitis. Wears glasses Cardiovascular History: Reports: Hypertension Other Cardiovascular History: hypotension Respiratory History: Reports: COPD Gastrointestinal History: Reports: GERD, GI bleed Genitourinary History: Reports: Dialysis, Renal disease Other Genitourinary History: M-W-F Musculoskeletal History: Reports: Arthritis, Osteoarthritis Other Musculoskeletal History: greater trochanter bursitis Neurological History: Reports: Neuropathy, peripheral Psychiatric History: Reports: Anxiety, Depression, Schizophrenia Other Psychiatric History: schizoaffective disorder Endocrine/Metabolic History: Reports: Diabetes, type II Hematologic History: Reports: Anemia - Past Surgical History Head Surgeries/Procedures: Reports: Shunt Cardiovascular Surgical History: Reports: Vascular surgery Female Surgical History: Reports: D&C Endocrine Surgical History: Reports: None Neurological Surgical History: Reports: None Social & Family History - Family History Family Medical History: Noncontributory - Tobacco Use Smoking Status *Q: Former Smoker Years of Tobacco use: 50 Packs/Tins Daily: 2.5 Used Tobacco, but Quit: Yes Month Tobacco Last Used: 2001 Second Hand Smoke Exposure: No - Caffeine Use Caffeine Use: Reports: None Other Caffeine Use: 3 cups a day avg - Alcohol Use Days Per Week of Alcohol Use: 0 - Recreational Drug Use Recreational Drug Use: No - Living Situation & Occupation Living situation: Reports: single, assisted living ([place]) Occupation: retired ED ROS GENERAL - Review of Systems Review Of Systems: See Below Constitutional: Reports: no symptoms HEENT: Reports: No symptoms Respiratory: Reports: No Symptoms Cardiovascular: Reports: No symptoms Endocrine: Reports: no symptoms GI/Abdominal: Reports: No symptoms : Reports: no symptoms Musculoskeletal: Reports: no symptoms Skin: Reports: no symptoms Neurological: Reports: Confusion, Weakness (generalized) - Physical Exam Exam: See Below Exam Limited By: No limitations General Appearance: alert, no apparent distress Ears: normal external exam Nose: normal inspection Head Exam: atraumatic, normocephalic Neck: normal inspection Respiratory/Chest: no respiratory distress, lungs clear, normal breath sounds Cardiovascular: regular rate, rhythm, no edema, no murmur GI/Abdominal: soft, non tender, no organomegaly, no mass Neuro Exam (Abbreviated): alert, confused (she knew who she was and where she was), other (generalized weakness) EKG INTERPRETATION EKG Date: 12/05/16 Time: 10:14 Rhythm: NSR Rate (beats/min): 72 [place]: normal P-wave: present QRS: normal ST-T: normal QT: normal Course - Vital Signs Last Recorded V/S: Last Vital Signs Temp 98.3 F 12/05/16 10:17 Pulse 71 12/05/16 10:17 Resp 13 12/05/16 10:17 BP 205/85 H 12/05/16 10:17 Pulse Ox 95 12/05/16 10:17 - Orders/Labs/Meds Orders: Active Orders 24 hr Category Date Time Status Cardiac Monitoring [RC] . DIRECTED Care 12/05/16 10:19 Active EKG Documentation Completion [RC] STAT Care 12/05/16 10:19 Active Insert Damon Catheter [Insert Urinary Catheter] [OM.PC] Care 12/05/16 11:30 Ordered Q24H Oxygen Therapy [RC] PRN Care 12/05/16 10:19 Active Peripheral IV Care [RC] . DIRECTED Care 12/05/16 10:19 Active Urinary Catheter Assessment [RC] ASDIRECTED Care 12/05/16 11:10 Active CULTURE URINE [RM] Stat Lab 12/05/16 11:10 Ordered Sodium Chloride 0.9% [Normal Saline] 1,000 ml Med 12/05/16 10:30 Active IV ASDIRECTED Sodium Chloride 0.9% [Saline Flush] Med 12/05/16 10:18 Active 10 ml FLUSH ASDIRECTED PRN Peripheral IV Insertion Adult [OM.PC] Stat Oth 12/05/16 10:18 Ordered Medication Orders Sodium Chloride (Normal Saline) 1,000 mls @ 125 mls/hr IV ASDIRECTED LISA Last Admin: 12/05/16 10:38 Dose: 125 mls/hr Sodium Chloride (Saline Flush) 10 ml FLUSH ASDIRECTED PRN PRN Reason: Keep Vein Open Last Admin: 12/05/16 10:37 Dose: 10 ml Labs: Laboratory Tests 12/05/16 12/05/16 12/05/16 Range/Units 10:18 10:18 11:10 WBC 5.84 (3.98-10.04) K/mm3 RBC 3.65 L (3.98-5.22) M/mm3 Hgb 11.6 (11.2-15.7) gm/L Hct 39.5 (34.1-44.9) % MCV 108.2 H (79.4-94.8) fl MCH 31.8 (25.6-32.2) pg MCHC 29.4 L (32.2-35.5) g/dl RDW Std Deviation 59.4 H (36.4-46.3) fL Plt Count 118 L (182-369) K/mm3 MPV 11.1 (9.4-12.3) fl Neut % (Auto) 77.1 H (34.0-71.1) % Lymph % (Auto) 10.4 L (19.3-51.7) % [place] % (Auto) 9.9 (4.7-12.5) % Eos % (Auto) 1.9 (0.7-5.8) Baso % (Auto) 0.5 (0.1-1.2) % Neut # (Auto) 4.50 (1.56-6.13) K/mm3 Lymph # (Auto) 0.61 L (1.18-3.74) K/mm3 [place] # (Auto) 0.58 H (0.24-0.36) K/mm3 Eos # (Auto) 0.11 (0.04-0.36) K/mm3 Baso # (Auto) 0.03 (0.01-0.08) K/mm3 Manual Slide Review Abnormal smear Sodium 141 (136-145) mEq/L Potassium 4.1 (3.5-5.1) mEq/L Chloride 102 (98-107) mEq/L Carbon Dioxide 36 H (21-32) mEq/L Anion Gap 7.1 (5-15) BUN 19 H (7-18) mg/dL Creatinine 4.4 H (0.55-1.02) mg/dL Est Cr Clr Drug Dosing TNP Estimated GFR (MDRD) 10 (>60) mL/min BUN/Creatinine Ratio 4.3 L (14-18) Glucose 122 H (83-115) mg/dL Calcium 8.8 (8.5-10.1) mg/dL Total Bilirubin 0.4 (0.2-1.0) mg/dL AST 13 L (15-37) U/L ALT 26 (14-59) U/L Alkaline Phosphatase 90 (46-116) U/L Troponin I 0.024 (0.00-0.056) ng/mL Total Protein 6.3 L (6.4-8.2) g/dl Albumin 3.5 (3.4-5.0) g/dl Globulin 2.8 gm/dL Albumin/Globulin Ratio 1.3 (1-2) Urine Color Yellow (Yellow) Urine Appearance Clear (Clear) Urine pH 7.5 (5.0-8.0) Ur Specific [place] 1.020 (1.005-1.030) Urine Protein 3+ H (Negative) Urine Glucose (UA) Negative (Negative) Urine Ketones Negative (Negative) Urine Occult Blood 3+ H (Negative) Urine Nitrite Negative (Negative) Urine Bilirubin Negative (Negative) Urine Urobilinogen 0.2 (0.2-1.0) Ur Leukocyte Esterase Trace H (Negative) Urine RBC 10-20 H (0-5) /hpf Urine WBC 5-10 H (0-5) /hpf Urine WBC Clumps Not seen (NOT SEEN) /hpf Ur Epithelial Cells Not seen (0-5) /hpf Urine Bacteria Few (FEW) /hpf Urine Mucus Not seen (FEW) /hpf Urine Yeast Not seen (NOT SEEN) Meds: Medications Generic Name Dose Route Start Last Admin Trade Name Freq PRN Reason Stop Dose Admin Sodium Chloride 1,000 mls @ 125 mls/hr 12/05/16 10:30 12/05/16 10:38 Normal Saline IV 125 mls/hr ASDIRECTED LISA Administration Sodium Chloride 10 ml 12/05/16 10:18 12/05/16 10:37 Saline Flush FLUSH 10 ml ASDIRECTED PRN Administration Keep Vein Open Discontinued Medications Generic Name Dose Route Start Last Admin Trade Name Freq PRN Reason Stop Dose Admin Hydralazine HCl 10 mg 12/05/16 10:20 12/05/16 10:35 Apresoline IVPUSH 12/05/16 10:21 10 mg ONETIME ONE Administration Ondansetron HCl 4 mg 12/05/16 11:40 12/05/16 11:44 Zofran IVPUSH 12/05/16 11:41 4 mg ONETIME ONE Administration - Re-Assessments/Exams Free Text/Narrative Re-Assessment/Exam: 12/05/16 12:06 I ordered oxygen, IV saline lock, hydralazine 10mg IV, EKG, CT of her head, labs and UA. The EKG of her heart shows a NSR. The CT of her head shows sinus finding felt to be incidental, mild senescent change, and no acute intracranial abnormality is seen. Her CXR shows some mild congestive changes. 12/05/16 12:09 Her BP is better now at 149/67. Her WBC and Hgb are normal. Her platelets are a little low at 118. Her CO2 is elevated at 36. Her anion gap is normal. Her creatinine is elevated at 4.4. Her BUN is elevated at 19. Her GFR is low at 10. Her troponin is negative. Her UA shows a trace of leukocyte esterase, 5- 10WBCs and a few bacteria. I doubt this is a UTI. I have ordered a urine culture to be sure. She had some nausea so I ordered zofran 4mg IV. She feels better and wants to go home. 12/05/16 12:53 At this point [facility] cannot take her back. She is requiring more services then they can provide. They have an application in to [facility]. She will need to be admitted for the HTN, generalized weakness, and confusion. I called Dr Rodas her campaign advisor and he was okay with her staying here for now and getting dialysis tomorrow. I called Dr Ramos and he agreed to the admission. Departure - Departure Time of Disposition: 12:55 Disposition: Refer to Observation Condition: good Clinical Impression: ESRD on dialysis, Generalized weakness, Confusion Hypertension Qualifiers: Hypertension type: essential hypertension Qualified Code(s): I10 - Essential ( primary) hypertension Forms: ED Department Discharge - My Orders Last 24 Hours: My Active Orders 12/05/16 10:18 Sodium Chloride 0.9% [Saline Flush] 10 ml FLUSH ASDIRECTED PRN Peripheral IV Insertion Adult [OM.PC] Stat 12/05/16 10:19 Cardiac Monitoring [RC] . DIRECTED EKG Documentation Completion [RC] STAT Oxygen Therapy [RC] PRN Peripheral IV Care [RC] . DIRECTED 12/05/16 10:30 Sodium Chloride 0.9% [Normal Saline] 1,000 ml IV ASDIRECTED 12/05/16 11:10 Urinary Catheter Assessment [RC] ASDIRECTED CULTURE URINE [RM] Stat 12/05/16 11:30 Insert Damon Catheter [Insert Urinary Catheter] [OM.PC] Q24H - Assessment/Plan Last 24 Hours: My Active Orders 12/05/16 10:18 Sodium Chloride 0.9% [Saline Flush] 10 ml FLUSH ASDIRECTED PRN Peripheral IV Insertion Adult [OM.PC] Stat 12/05/16 10:19 Cardiac Monitoring [RC] . DIRECTED EKG Documentation Completion [RC] STAT Oxygen Therapy [RC] PRN Peripheral IV Care [RC] . DIRECTED 12/05/16 10:30 Sodium Chloride 0.9% [Normal Saline] 1,000 ml IV ASDIRECTED 12/05/16 11:10 Urinary Catheter Assessment [RC] ASDIRECTED CULTURE URINE [RM] Stat 12/05/16 11:30 Insert Damon Catheter [Insert Urinary Catheter] [OM.PC] Q24H
--- NOTE | 2016-12-05 12:04 | CR ---
Chest: Portable view of the chest was obtained. Comparison: Previous chest x-ray of 11/02/16. Increased central lung markings are noted. Focal parenchymal density seen within the left mid to lower lung. Heart is enlarged. Tortuous thoracic aorta is seen. Scoliosis is present within the spine. Calcified gallstones are seen within the upper right abdomen. Impression: 1. Findings suspicious for mild CHF with left mid to lower lung atelectasis. 2. Other incidental findings as noted above. Diagnostic code #3
--- NOTE | 2016-12-05 13:15 | PCM.HP ---
H&P History of Present Illness - General Date of Service: 12/05/16 Admit Problem/Dx: Admission Diagnosis/Problem Admission Diagnosis/Problem Renal failure - History of Present Illness Initial Comments - Free Text/Narative: This is a 71-year-old female with history of COPD, ESRD on dialysis MWF, hypertension, schizoaffective disorder, neuropathy, diabetes type 2, and multiple other comorbidities without was brought to the hospital from her assisted-living facility [place] for concerns of weakness and mental status change. At baseline she is a pretty cooperative only some of the times. This is living noted that she was weaker than usual, and more confused. In the ER and she was hypertensive to 200 systolic range and required IV hydralazine. Other workup was negative for any acute etiology of weakness. We were asked to evaluate her for admission. history is limited and obtained from the chart and from signout as patient is not responding verbally to questions, but is answering only No to most of my review of system questions. - Related Data Allergies/Adverse Reactions: Allergies Allergy/AdvReac Type Severity Reaction Status Date / Time No Known Allergies Allergy Verified 12/05/16 10:22 Home Medications: Home Meds Cinacalcet [Sensipar] 90 mg PO DAILY 04/30/14 [History] Gabapentin [Neurontin] 400 mg PO TID 04/30/14 [History] Hydrocodone/Acetaminophen [Hydrocodone-Acetaminophen 5-325] 1 tab PO Q6H PRN [History] Ranitidine HCl 300 mg PO BID 04/30/14 [History] Sodium Bicarbonate 650 mg PO TID 04/30/14 [History] Trifluoperazine 5 mg PO BEDTIME 04/30/14 [History] Omeprazole 20 mg PO DAILY 03/15/16 [History] Carboxymethylcellulose Sodium [Refresh Tears] 1 drop EYEBOTH TID PRN 06/18/16 [ History] Folic Acid/Vitamin B Comp W-C [Renal Caps Softgel] 1 cap PO DAILY 06/18/16 [ History] Polyethylene Glycol 3350 [MiraLAX] 17 gm PO DAILY PRN 06/18/16 [History] Eucalyptus Body Lotion 1 gram TOP DAILY 09/08/16 [History] Acetaminophen [Tylenol Arthritis Pain] 650 mg PO Q4H PRN 11/02/16 [History] traMADol HCl [Tramadol HCl] 50 mg PO QID PRN 11/02/16 [History] Cephalexin [Keflex] 500 mg PO TID #21 cap 11/30/16 [Rx] Metoprolol Tartrate 25 mg PO BID 11/30/16 [History] risperiDONE [Risperdal] 25 mg IM ASDIRECTED 11/30/16 [History] Alpha Lipoic Acid 600 mg PO DAILY 12/05/16 [History] Calcium Acetate 667 mg PO TID 12/05/16 [History] Citalopram Hydrobromide [Citalopram HBr] 20 mg PO DAILY 12/05/16 [History] ClonazePAM [KlonoPIN] 0.5 mg PO BID 12/05/16 [History] ClonazePAM [KlonoPIN] 0.5 mg PO Q4H PRN 12/05/16 [History] Docusate Sodium [Colace] 200 mg PO DAILY 12/05/16 [History] Ferrous Sulfate 325 mg PO BID 12/05/16 [History] Fluticasone Propionate [Flonase] 1 spray NASBOTH BID PRN 12/05/16 [History] Lisinopril [Zestril] 40 mg PO DAILY 12/05/16 [History] Mylanta. 2 tsp PO Q4H PRN 12/05/16 [History] Past Medical History HEENT History: Reports: Impaired vision, Other (see below) Other HEENT History: dry eye syndrome. superficial keratitis. Wears glasses Cardiovascular History: Reports: Hypertension Other Cardiovascular History: hypotension Respiratory History: Reports: COPD Gastrointestinal History: Reports: GERD, GI bleed Genitourinary History: Reports: Dialysis, Renal disease Other Genitourinary History: M-W-F Musculoskeletal History: Reports: Arthritis, Osteoarthritis Other Musculoskeletal History: greater trochanter bursitis Neurological History: Reports: Neuropathy, peripheral Psychiatric History: Reports: Anxiety, Depression, Schizophrenia Other Psychiatric History: schizoaffective disorder Endocrine/Metabolic History: Reports: Diabetes, type II Hematologic History: Reports: Anemia - Past Surgical History Head Surgeries/Procedures: Reports: Shunt Cardiovascular Surgical History: Reports: Vascular surgery Female Surgical History: Reports: D&C Endocrine Surgical History: Reports: None Neurological Surgical History: Reports: None Social & Family History - Family History Family Medical History: Noncontributory - Tobacco Use Smoking Status *Q: Former Smoker Years of Tobacco use: 50 Packs/Tins Daily: 2.5 Used Tobacco, but Quit: Yes Month Tobacco Last Used: 2001 Second Hand Smoke Exposure: No - Caffeine Use Caffeine Use: Reports: None Other Caffeine Use: 3 cups a day avg - Alcohol Use Days Per Week of Alcohol Use: 0 - Recreational Drug Use Recreational Drug Use: No - Living Situation & Occupation Living situation: Reports: single, assisted living ([place]) Occupation: retired H&P Review of Systems - Review of Systems: Review Of Systems: See Below (patient denies most complaints including urinary symptoms. However it is unclear if she is complaining of questions, and she is very drowsy.) Exam - Exam Exam: See Below - Vital Signs Vital Signs: Last Vital Signs Temp 36.8 C 12/05/16 10:17 Pulse 71 12/05/16 10:17 Resp 13 12/05/16 10:17 BP 205/85 H 12/05/16 10:17 Pulse Ox 95 12/05/16 10:17 Weight: 65.771 kg - Exam Physical Exam Comments:: Vitals: as above General: drowsy. NAD Psych: unable to assess as patient is not verbally responding to most questions. HEENT: normocephalic, atraumatic. EOMI Cardiac: Normal S1, S2. regular rate. systolic murmur with radiation into carotid. No JVD noted. Lungs: CTAB, except for some bibasilar rales. Abd: Soft, NT/ND. No HSM noted. Skin: no new visible rashes or purpura noted Neuro: patient is extremely drowsy and not following commands very much for a physical exam. She does does have spontaneous movements. Occasionally responds noticeable when questions. No gross focal cranial nerve deficits noted. - Patient Data Lab Results last 24 hrs: Laboratory Results - last 24 hr 12/05/16 12/05/16 12/05/16 Range/Units 10:18 10:18 11:10 WBC 5.84 (3.98-10.04) K/mm3 RBC 3.65 L (3.98-5.22) M/mm3 Hgb 11.6 (11.2-15.7) gm/L Hct 39.5 (34.1-44.9) % MCV 108.2 H (79.4-94.8) fl MCH 31.8 (25.6-32.2) pg MCHC 29.4 L (32.2-35.5) g/dl RDW Std Deviation 59.4 H (36.4-46.3) fL Plt Count 118 L (182-369) K/mm3 MPV 11.1 (9.4-12.3) fl Neut % (Auto) 77.1 H (34.0-71.1) % Lymph % (Auto) 10.4 L (19.3-51.7) % [place] % (Auto) 9.9 (4.7-12.5) % Eos % (Auto) 1.9 (0.7-5.8) Baso % (Auto) 0.5 (0.1-1.2) % Neut # (Auto) 4.50 (1.56-6.13) K/mm3 Lymph # (Auto) 0.61 L (1.18-3.74) K/mm3 [place] # (Auto) 0.58 H (0.24-0.36) K/mm3 Eos # (Auto) 0.11 (0.04-0.36) K/mm3 Baso # (Auto) 0.03 (0.01-0.08) K/mm3 Manual Slide Review Abnormal smear Sodium 141 (136-145) mEq/L Potassium 4.1 (3.5-5.1) mEq/L Chloride 102 (98-107) mEq/L Carbon Dioxide 36 H (21-32) mEq/L Anion Gap 7.1 (5-15) BUN 19 H (7-18) mg/dL Creatinine 4.4 H (0.55-1.02) mg/dL Est Cr Clr Drug Dosing TNP Estimated GFR (MDRD) 10 (>60) mL/min BUN/Creatinine Ratio 4.3 L (14-18) Glucose 122 H (83-115) mg/dL Calcium 8.8 (8.5-10.1) mg/dL Total Bilirubin 0.4 (0.2-1.0) mg/dL AST 13 L (15-37) U/L ALT 26 (14-59) U/L Alkaline Phosphatase 90 (46-116) U/L Troponin I 0.024 (0.00-0.056) ng/mL Total Protein 6.3 L (6.4-8.2) g/dl Albumin 3.5 (3.4-5.0) g/dl Globulin 2.8 gm/dL Albumin/Globulin Ratio 1.3 (1-2) Urine Color Yellow (Yellow) Urine Appearance Clear (Clear) Urine pH 7.5 (5.0-8.0) Ur Specific [place] 1.020 (1.005-1.030) Urine Protein 3+ H (Negative) Urine Glucose (UA) Negative (Negative) Urine Ketones Negative (Negative) Urine Occult Blood 3+ H (Negative) Urine Nitrite Negative (Negative) Urine Bilirubin Negative (Negative) Urine Urobilinogen 0.2 (0.2-1.0) Ur Leukocyte Esterase Trace H (Negative) Urine RBC 10-20 H (0-5) /hpf Urine WBC 5-10 H (0-5) /hpf Urine WBC Clumps Not seen (NOT SEEN) /hpf Ur Epithelial Cells Not seen (0-5) /hpf Urine Bacteria Few (FEW) /hpf Urine Mucus Not seen (FEW) /hpf Urine Yeast Not seen (NOT SEEN) Result Diagrams: 12/05/16 10:18 12/05/16 10:18 Imaging Impressions last 24 hrs: CT of the head shows no acute intracranial abnormalities. chest x-ray shows mild atelectasis versus pulmonary edema *Q Meaningful Use (ADM) - VTE *Q VTE Criteria *Q: - Stroke *Q Stroke Criteria *Q: - AMI *Q AMI Criteria *Q: - Problem List (1) Acute encephalopathy SNOMED Code(s): 6075333 ICD Code: G93.40 - ENCEPHALOPATHY, UNSPECIFIED Status: Acute Current Visit: Yes (2) Hypertensive urgency SNOMED Code(s): 748816303 ICD Code: I16.0 - HYPERTENSIVE URGENCY Status: Acute Current Visit: Yes (3) Fluid overload SNOMED Code(s): 15324513 ICD Code: E87.70 - FLUID OVERLOAD, UNSPECIFIED Status: Acute Current Visit: Yes Qualifiers: Hypervolemia type: unspecified Qualified Code(s): E87.70 - Fluid overload, unspecified Problem List Initiated/Reviewed/Updated: Yes Orders Last 24hrs: Active Orders 24 hr Category Date Time Status Admission Status [Patient Status] [ADT] Routine ADT 12/05/16 12:57 Active Cardiac Monitoring [RC] . DIRECTED Care 12/05/16 10:19 Active EKG Documentation Completion [RC] STAT Care 12/05/16 10:19 Active Insert Damon Catheter [Insert Urinary Catheter] [OM.PC] Care 12/05/16 11:30 Ordered Q24H Oxygen Therapy [RC] PRN Care 12/05/16 10:19 Active Peripheral IV Care [RC] . DIRECTED Care 12/05/16 10:19 Active Urinary Catheter Assessment [RC] ASDIRECTED Care 12/05/16 11:10 Active CULTURE URINE [RM] Stat Lab 12/05/16 11:10 Received Sodium Chloride 0.9% [Normal Saline] 1,000 ml Med 12/05/16 10:30 Active IV ASDIRECTED Sodium Chloride 0.9% [Saline Flush] Med 12/05/16 10:18 Active 10 ml FLUSH ASDIRECTED PRN Peripheral IV Insertion Adult [OM.PC] Stat Oth 12/05/16 10:18 Ordered Medication Orders Sodium Chloride (Normal Saline) 1,000 mls @ 125 mls/hr IV ASDIRECTED LISA Last Admin: 12/05/16 10:38 Dose: 125 mls/hr Sodium Chloride (Saline Flush) 10 ml FLUSH ASDIRECTED PRN PRN Reason: Keep Vein Open Last Admin: 12/05/16 10:37 Dose: 10 ml Assessment/Plan Comment:: Acute encephalopathy. CT of the head is negative for any acute intracranial abnormalities noted. Possibly secondary to hypertensive encephalopathy versus progression of her schizoaffective disorder. Hypertensive urgency. Patient was given IV hydralazine in the ER. We'll continue to monitor her closely. Continue metoprolol, lisinopril. CHF versus atelectasis. Will check echocardiogram. try diuresis with IV Lasix today. ESRD. Patient to continue outpatient dialysis schedule. Continue cinacalcet Chronic medical conditions: Continue psych meds including clonazepam, citalopram, risperidone, trifluoperazine Outpatient Keflex course, will continue. Nursing to clarify why she was initiated on it. Chronic pain-hold tramadol, [place], gabapentin as encephalopathic GERD-continue PPI, and H2 [place] Iron deficiency-continue supplement Patient is full code according to assisted-living records DVT prophylaxis with subcutaneous Lovenox
[2016-12-05] MEDS ORDERED: Non-Formulary Medication 1 Each (Acetaminophen 650 MG) PO PRN (13:21)
[2016-12-05] MEDS ORDERED: MYLANTA PO PRN (13:21)
[2016-12-05] MEDS ORDERED: Polyethylene Glycol 3350 Powder 17 GM Packet PO PRN (13:21)
[2016-12-05] MEDS ORDERED: ClonazePAM 0.5 MG Tab PO PRN (13:21)
[2016-12-05] MEDS ORDERED: CARBOXYMETHYLCELLULOSE SODIUM EYEBOTH PRN (13:21)
[2016-12-05] MEDS ORDERED: Acetaminophen 325 MG Tab PO PRN (13:26)
[2016-12-05] MEDS ORDERED: hydrALAZINE 10 MG Tab PO PRN (13:26)
[2016-12-05] MEDS ORDERED: Bisacodyl 10 MG Supp RECTAL PRN (13:26)
[2016-12-05] MEDS ORDERED: RISPERIDONE IM SCH (13:30)
[2016-12-05] MEDS ORDERED: Furosemide 40 MG/4 ML VIAL IVPUSH ONE (13:32)
[2016-12-05] MEDS ORDERED: Cephalexin 500 MG Cap PO SCH (15:00)
[2016-12-05] MEDS: Calcium Acetate 667 MG Cap PO SCH ×2 (15:26→20:50)
[2016-12-05] MEDS: Sodium Bicarbonate 650 MG Tab PO SCH ×2 (15:26→20:50)
[2016-12-05] MEDS ORDERED: Diphtheria,Pertussis(Acell),Tetanus Vaccine 0.5 ML SDV inactive IM ONE (15:52)
[2016-12-05] MEDS: Cephalexin 500 MG Cap PO SCH ×2 (16:44→20:49)
--- NOTE | 2016-12-05 18:21 | CR ---
Left hip: AP and frog-leg lateral views of the left hip were obtained. Joint space within the left hip is maintained. Bony structures are osteopenic. Vascular calcification is noted. No discrete fracture or other abnormality is seen. Impression: 1. Vascular calcification and osteopenia. 2. No additional abnormality is appreciated on left hip study. Diagnostic code #2
[2016-12-05] MEDS: Metoprolol Tartrate 25 MG Tab PO SCH (20:46)
[2016-12-05] MEDS: ClonazePAM 0.5 MG Tab PO SCH (20:47)
[2016-12-05] MEDS: Famotidine 20 MG Tab PO SCH (20:49)
[2016-12-05] MEDS: Ferrous Sulfate 325 MG Tab PO SCH (20:49)
--- NOTE | 2016-12-05 22:38 | PCM.SN ---
- Free Text/Narrative Note: I was called by nurse at 9:48 PM stating that the patient had become progressively more drowsy and unresponsive this evening. She was originally arousable enough to take her medications enough just to swallow without aspirating. One hour later she was found to be unresponsive to painful stimuli. I arrived to examine the patient. Her pupils were round and reactive bilaterally. She was unresponsive except to deep sternal rub which made her groan slightly. Patient was otherwise unresponsive. She was initiating respirations unknown. Stat CT was requested, and stat ABG. Patient had been given her usual dose of Klonopin with her other medications. Her other [employer] depressant medications Including gabapentin, Crocker, and tramadol were held on admission. Her trifluoperazine was ordered for the morning, but somehow was given tonight. Her ABGs returned with a pH of 7.2 and CO2 of 80s.I requested RT to placed on BiPAP. I instructed him to get a repeat blood gas in one hour, and increased back up rate or inspiratory pressure if her pH and PCO2 is not corrected on recheck. Critical care time spent approximately 40 minutes.
[2016-12-06] MEDS ORDERED: Propofol 200 MG/20 ML SDV IVPUSH ONE (02:00)
--- NOTE | 2016-12-06 02:34 | PCM.PRNOTE ---
- Free Text/Narrative Note: Asked to intubate the patient due to respiratory acidosis. Sedation: Propofol 40 mg/4 ml followed by propofol drip, titrated to sedation. BVM prior to intubation. SpO2 100 % prior to intubation. Blade: Mac 3 ETT: 8.0 Cords easily visualized, and the patient intubated without difficulty. ETT secured at 24 cm at the teeth. Endotracheal intubation confirmed with CO2 colorimetric change, bilateral axillary breath sounds, and fog in the tube. Initial vent setings: A/C 14 / .400 / 5 / 0.21 Post-intubation PCXR demonstrates the tip of the ETT just above the sejal. The OGT is into the stomach via the esophagus. I have asked for the ETT tube to be withdrawn 1.5 cm, secured at 22.5 cm. ABG to be drawn approximately 20 minutes.
[2016-12-06] MEDS ORDERED: hydrALAZINE 20 MG/ML SDV IVPUSH ONE (06:30)
--- NOTE | 2016-12-06 07:39 | CR ---
Chest: Frontal view of the chest was obtained. Comparison: Previous chest x-ray of 12/06/16 (2:21 AM). Tip of endotracheal tube lies at the origin of the left mainstem bronchus. Nasogastric tube is seen with the tip of catheter being within the proximal stomach. Lung markings are increased. Stable cardiomegaly noted. Scoliosis and osteopenia is noted. Impression: 1. Tip of endotracheal tube at the origin of the left mainstem bronchus. 2. Stable nasogastric tube with tip lying within the proximal stomach. 3. Other portions of the chest are stable. Diagnostic code #5
--- NOTE | 2016-12-06 07:39 | CR ---
Chest: Frontal view of the chest was obtained (3:26 AM). Comparison: Previous chest x-ray performed on the same day (time 3:05 AM). Stable cardiomegaly. Stable increased lung markings. Tip of endotracheal tube lies approximately 1.9 cm above the sejal. Nasogastric tube remains stable in position. Stable cardiomegaly and increased lung markings. Stable bony structures. Impression: 1. Tip of endotracheal tube 1.9 cm above the sejal. 2. Other portions of the chest are stable. Diagnostic code #2 I agree with preliminary report issued by [facility] (preliminary report dictated on 12/06/16, 5:16 AM Central Time)
--- NOTE | 2016-12-06 07:39 | CR ---
Chest: Portable view of the chest was obtained (2:21 AM). Comparison: Previous chest x-ray of 12/05/16. Heart is enlarged. Central lung markings are increased which appears stable. Endotracheal tube is now seen with tip lying at the level of the sejal. Nasogastric tube is seen with tip lying within the proximal stomach. Impression: 1. Tip of endotracheal tube at the sejal, nasogastric tube as noted above. 2. Other portions of the chest are stable from prior exam. Diagnostic code #3
--- NOTE | 2016-12-06 07:39 | CT ---
Head CT Technique: Multiple axial sections through the brain were obtained. Intravenous contrast was not utilized. Comparison: Previous head CT study of 12/05/16. Findings: Ventricles along with basal cisterns and sulci over the convexities are mildly prominent. Diminished density again noted within the basal ganglia which appears stable. Mild diminished density noted within the periventricular white matter which is stable. No other abnormal parenchymal densities are seen. No evidence of intracranial hemorrhage. No midline shift or mass effect is seen. Mild atheromatous changes are seen within the carotid siphon. No acute calvarial abnormality is appreciated. Tubing is partially seen within the oropharynx. Impression: 1. Senescent change as described above appearing fairly stable from prior head CT exam. 2. Nothing acute is identified on current noncontrast head CT exam. Diagnostic code #2 I agree with preliminary report issued by [employer] (preliminary report dictated on 12/06/16, 5:08 AM Central Time)
[2016-12-06] MEDS ORDERED: Docusate Sodium 100 MG Cap PO SCH (09:00)
[2016-12-06] MEDS ORDERED: Citalopram 20 MG Tab PO SCH (09:00)
[2016-12-06] MEDS ORDERED: Lisinopril 20 MG Tab PO SCH (09:00)
[2016-12-06] MEDS ORDERED: Alpha Lipoic Acid [Alpha Lipoic Acid] 600 MG PO SCH (09:00)
[2016-12-06] MEDS ORDERED: CINACALCET 90 MG PO SCH (09:00)
[2016-12-06] MEDS ORDERED: Pantoprazole 40 MG Tab.CR PO SCH (09:00)
[2016-12-06] MEDS ORDERED: Enoxaparin 30 MG/0.3 ML Syringe SUBCUT SCH (09:00)
[2016-12-06] MEDS ORDERED: Nitroglycerin/D5W 25 MG/250 ML BOTTLE IV SCH (09:45)
[2016-12-06] MEDS ORDERED: Nitroglycerin/D5W 25 MG/250 ML BOTTLE ONE (09:48)
[2016-12-06] MEDS ORDERED: Furosemide 40 MG/4 ML VIAL IVPUSH STA (10:09)
[2016-12-06] MEDS: Famotidine 20 MG Tab PO SCH (10:18)
[2016-12-06] MEDS: Metoprolol Tartrate 25 MG Tab PO SCH (10:19)
[2016-12-06] MEDS: Calcium Acetate 667 MG Cap PO SCH (10:20)
[2016-12-06] MEDS: Cephalexin 500 MG Cap PO SCH (10:21)
[2016-12-06] MEDS: Ferrous Sulfate 325 MG Tab PO SCH (10:22)
[2016-12-06] MEDS: ClonazePAM 0.5 MG Tab PO SCH (10:22)
[2016-12-06] MEDS: Sodium Bicarbonate 650 MG Tab PO SCH (10:27)
--- NOTE | 2016-12-06 10:47 | CR ---
Chest: Frontal view of the chest was obtained. Comparison: Previous chest x-rays performed earlier on the same day. Tip of endotracheal tube lies midway between the clavicle and sejal in satisfactory position. Nasogastric tube has been advanced and is within the stomach. Heart is enlarged. Tortuous thoracic aorta is seen. Increased central lung markings are again noted which are stable. Impression: 1. Satisfactory position of endotracheal tube and nasogastric tube. 2. Other portions of the chest are stable. Diagnostic code #3
--- NOTE | 2016-12-06 11:20 | PCM.PN ---
- General Info Date of Service: 12/06/16 Admission Dx/Problem (Free Text): Admission Diagnosis/Problem Admission Diagnosis/Problem Renal failure Patient was admitted from ER yesterday with AMS, fluctuating mental status for the last few weeks, HTN and renal failure. Dr. Miller reviewed case with Dr. Prince, Nephrology and Dr. Sharpe, PCP who both agreed to admission here at [facility] for SNF placement, b/p control and eval of AMS with plans for having dialysis tomorrow as regularly scheduled in [place]. Patient continued to have intermittent episodes of lethargy last evening. She had an unwitnessed fall, head CT was negative for acute findings. She continued to be lethargic, developed hypoxia and became essentially unresponsive. Supplemental oxygen was placed. ABG was obtained showing acidosis. Bipap was tried with repeat ABG's showing worsening acidosis. She was subsequently intubated and transferred to ICU. ABG this morning is repeated- see labs for details. She is sedated, resting comfortably. - Patient Data Vitals - most recent: Last Vital Signs Temp 98.8 F 12/06/16 07:46 Pulse 84 12/06/16 10:19 Resp 14 12/06/16 10:14 BP 157/70 H 12/06/16 10:19 Pulse Ox 95 12/06/16 10:15 Weight - most recent: 130 lb 8.218 oz I&O - last 24 hours: Intake & Output 12/05/16 12/06/16 12/06/16 22:59 06:59 14:59 Intake Total 750 70 Output Total 10 Balance 750 70 -10 Lab Results last 24 hrs: Laboratory Results - last 24 hr 12/05/16 12/06/16 12/06/16 Range/Units 21:49 00:00 02:00 WBC (3.98-10.04) K/mm3 RBC (3.98-5.22) M/mm3 Hgb (11.2-15.7) gm/L Hct (34.1-44.9) % MCV (79.4-94.8) fl MCH (25.6-32.2) pg MCHC (32.2-35.5) g/dl RDW Std Deviation (36.4-46.3) fL Plt Count (182-369) K/mm3 MPV (9.4-12.3) fl Puncture Site Rt radial Rt radial Rt radial ABG pH 7.23 L 7.23 L 7.22 L (7.35-7.45) ABG pCO2 85.5 H* 81.8 H* 84.5 H* (35.0-45.0) mmHg ABG pO2 67.0 L 84.0 87.0 (80.0-100.0) mmHg ABG HCO3 34.4 H 33.0 H 33.6 H (22.0-26.0) meq/L ABG O2 Saturation 94.7 L 96.9 97.3 H (96.0-97.0) % ABG Base Excess 5.2 H 3.4 H 3.6 H (-2-2.0) Jerry Test Positive Positive A-a Gradient 83 77 mmHg O2 Delivery Device Nasal cannula Bipap Bipap Oxygen Flow Rate 2.0 FiO2 0.00 L 40.00 40.00 (21.00-100.00) % Tidal Volume cc PEEP cmH20 Sodium (136-145) mEq/L Potassium (3.5-5.1) mEq/L Chloride (98-107) mEq/L Carbon Dioxide (21-32) mEq/L Anion Gap (5-15) BUN (7-18) mg/dL Creatinine (0.55-1.02) mg/dL Est Cr Clr Drug Dosing mL/min Estimated GFR (MDRD) (>60) mL/min BUN/Creatinine Ratio (14-18) Glucose (83-115) mg/dL Calcium (8.5-10.1) mg/dL 12/06/16 12/06/16 12/06/16 Range/Units 04:19 04:36 04:36 WBC 5.54 (3.98-10.04) K/mm3 RBC 3.58 L (3.98-5.22) M/mm3 Hgb 11.5 (11.2-15.7) gm/L Hct 38.9 (34.1-44.9) % MCV 108.7 H (79.4-94.8) fl MCH 32.1 (25.6-32.2) pg MCHC 29.6 L (32.2-35.5) g/dl RDW Std Deviation 59.8 H (36.4-46.3) fL Plt Count 126 L (182-369) K/mm3 MPV 11.6 (9.4-12.3) fl Puncture Site Rt radial ABG pH 7.41 (7.35-7.45) ABG pCO2 51.4 H (35.0-45.0) mmHg ABG pO2 44.0 L (80.0-100.0) mmHg ABG HCO3 32.1 H (22.0-26.0) meq/L ABG O2 Saturation 87.7 L (96.0-97.0) % ABG Base Excess 6.8 H (-2-2.0) Jerry Test Positive A-a Gradient mmHg O2 Delivery Device Ventilator Oxygen Flow Rate FiO2 0.00 L (21.00-100.00) % Tidal Volume 400.0 cc PEEP 5.0 cmH20 Sodium 141 (136-145) mEq/L Potassium 4.6 (3.5-5.1) mEq/L Chloride 102 (98-107) mEq/L Carbon Dioxide 33 H (21-32) mEq/L Anion Gap 10.6 (5-15) BUN 26 H (7-18) mg/dL Creatinine 5.2 H (0.55-1.02) mg/dL Est Cr Clr Drug Dosing 7.13 mL/min Estimated GFR (MDRD) 8 (>60) mL/min BUN/Creatinine Ratio 5.0 L (14-18) Glucose 88 (83-115) mg/dL Calcium 9.5 (8.5-10.1) mg/dL 12/06/16 12/06/16 Range/Units 08:45 09:49 WBC (3.98-10.04) K/mm3 RBC (3.98-5.22) M/mm3 Hgb (11.2-15.7) gm/L Hct (34.1-44.9) % MCV (79.4-94.8) fl MCH (25.6-32.2) pg MCHC (32.2-35.5) g/dl RDW Std Deviation (36.4-46.3) fL Plt Count (182-369) K/mm3 MPV (9.4-12.3) fl Puncture Site Rt radial Rt radial ABG pH 7.51 H 7.49 H (7.35-7.45) ABG pCO2 38.0 40.3 (35.0-45.0) mmHg ABG pO2 47.0 L 57.0 L (80.0-100.0) mmHg ABG HCO3 30.1 H 30.5 H (22.0-26.0) meq/L ABG O2 Saturation 92.7 L 95.3 L (96.0-97.0) % ABG Base Excess 6.9 H 6.9 H (-2-2.0) Jerry Test A-a Gradient 74 129 mmHg O2 Delivery Device Ventilator Ventilator Oxygen Flow Rate FiO2 25.00 35.00 (21.00-100.00) % Tidal Volume 400.0 400.0 cc PEEP 5.0 5.0 cmH20 Sodium (136-145) mEq/L Potassium (3.5-5.1) mEq/L Chloride (98-107) mEq/L Carbon Dioxide (21-32) mEq/L Anion Gap (5-15) BUN (7-18) mg/dL Creatinine (0.55-1.02) mg/dL Est Cr Clr Drug Dosing mL/min Estimated GFR (MDRD) (>60) mL/min BUN/Creatinine Ratio (14-18) Glucose (83-115) mg/dL Calcium (8.5-10.1) mg/dL Med Orders - Current: Current Medications Acetaminophen (Tylenol) 650 mg PO Q4H PRN PRN Reason: Pain (Mild 1-3)/fever Bisacodyl (Dulcolax) 10 mg RECTAL DAILY PRN PRN Reason: Constipation Calcium Acetate (Phoslo) 667 mg PO TID [facility] Last Admin: 12/06/16 10:20 Dose: 667 mg Cephalexin (Keflex) 500 mg PO TID [facility] Stop: 12/08/16 15:01 Last Admin: 12/06/16 10:21 Dose: 500 mg Citalopram Hydrobromide (Celexa) 20 mg PO DAILY [facility] Last Admin: 12/06/16 10:22 Dose: 20 mg Clonazepam (Klonopin) 0.5 mg PO Q4H PRN PRN Reason: Anxiety Clonazepam (Klonopin) 0.5 mg PO BID [facility] Last Admin: 12/06/16 10:22 Dose: Not Given Docusate Sodium (Colace) 200 mg PO DAILY [facility] Last Admin: 12/06/16 10:22 Dose: Not Given Enoxaparin Sodium (Lovenox) 30 mg SUBCUT DAILY [facility] Last Admin: 12/06/16 10:23 Dose: 30 mg Famotidine (Pepcid) 20 mg PO BID [facility] Last Admin: 12/06/16 10:18 Dose: 20 mg Ferrous Sulfate (Ferrous Sulfate) 325 mg PO BID [facility] Last Admin: 12/06/16 10:22 Dose: Not Given Hydralazine HCl (Apresoline) 10 mg PO Q6H PRN PRN Reason: systolic BP>180 or diast>105 Propofol (Diprivan 100 Ml) 100 mls @ 1.98 mls/hr IV TITRATE LISA; 5 MCG/KG/MIN PRN Reason: Protocol Last Titration: 12/06/16 07:53 Dose: 45 mcg/kg/min, 17.82 mls/hr Nitroglycerin/Dextrose (Nitroglycerin 25 Mg/D5w 250 Ml) 25 mg in 250 mls @ 45 mls/hr IV TITRATE LISA; 75 MCG/MIN PRN Reason: Protocol Last Titration: 12/06/16 10:30 Dose: 45 mcg/min, 27 mls/hr Lisinopril (Prinivil) 40 mg PO DAILY [facility] Last Admin: 12/06/16 10:19 Dose: 40 mg Metoprolol Tartrate (Lopressor) 25 mg PO BID [facility] Last Admin: 12/06/16 10:19 Dose: 25 mg Pantoprazole Sodium (Protonix) 40 mg PO DAILY [facility] Last Admin: 12/06/16 10:22 Dose: 40 mg Cinacalcet [Sensipar (] 90 Mg) 0 each PO DAILY [facility] Last Admin: 12/06/16 10:23 Dose: Not Given Carboxymethylcellulo (se Sodium 1 Drop) 0 each EYEBOTH TID PRN PRN Reason: Dry Eyes Alpha Lipoic Acid [ Alpha Lipoic Acid] 600 Mg 0 each PO DAILY [facility] Last Admin: 12/06/16 10:23 Dose: Not Given Mylanta. 2 Tsp 0 each PO Q4H PRN PRN Reason: Abdominal Pain Risperidone (Injection) 0 each IM ASDIRECTED [facility] Polyethylene Glycol (Miralax) 17 gm PO DAILY PRN PRN Reason: Constipation Sodium Bicarbonate (Sodium Bicarbonate) 650 mg PO TID [facility] Last Admin: 12/06/16 10:27 Dose: 650 mg Sodium Chloride (Saline Flush) 10 ml FLUSH ASDIRECTED PRN PRN Reason: Keep Vein Open Last Admin: 12/05/16 10:37 Dose: 10 ml Trifluoperazine HCl (Trifluoperazine) 5 mg PO BEDTIME [facility] Last Admin: 12/05/16 21:32 Dose: 5 mg Discontinued Medications Cephalexin (Keflex) 500 mg PO TID [facility] Stop: 12/07/16 15:01 Last Admin: 12/05/16 15:26 Dose: 500 mg Diphtheria/Tetanus/Acell Pertussis (Boostrix) 0.5 ml IM .ONCE ONE Stop: 12/05/16 15:53 Furosemide (Lasix) 20 mg IVPUSH NOW ONE Stop: 12/05/16 13:33 Last Admin: 12/05/16 15:26 Dose: 20 mg Furosemide (Lasix) 40 mg IVPUSH NOW STA Stop: 12/06/16 10:10 Last Admin: 12/06/16 10:28 Dose: 40 mg Hydralazine HCl (Apresoline) 10 mg IVPUSH ONETIME ONE Stop: 12/05/16 10:21 Last Admin: 12/05/16 10:35 Dose: 10 mg Hydralazine HCl (Apresoline) 10 mg IVPUSH ONETIME ONE Stop: 12/06/16 06:31 Last Admin: 12/06/16 06:57 Dose: 20 mg Sodium Chloride (Normal Saline) 1,000 mls @ 125 mls/hr IV ASDIRECTED [facility] Last Admin: 12/05/16 10:38 Dose: 125 mls/hr Propofol (Diprivan 100 Ml) Confirm Administered Dose 100 mls @ as directed .ROUTE .STK-MED ONE Stop: 12/06/16 02:04 Last Admin: 12/06/16 02:10 Dose: Not Given Nitroglycerin/Dextrose (Nitroglycerin 25 Mg/D5w 250 Ml) Confirm Administered Dose 25 mg in 250 mls @ as directed .ROUTE .STK-MED ONE Stop: 12/06/16 09:49 Last Admin: 12/06/16 10:04 Dose: Not Given Non-Formulary Medication (Acetaminophen) 650 mg PO Q4H PRN PRN Reason: Pain Ondansetron HCl (Zofran) 4 mg IVPUSH ONETIME ONE Stop: 12/05/16 11:41 Last Admin: 12/05/16 11:44 Dose: 4 mg Propofol (Diprivan 20 Ml) 40 mg IVPUSH ONETIME ONE Stop: 12/06/16 02:01 Last Admin: 12/06/16 04:05 Dose: Not Given - Exam Quality Assessment: restraints (ventilator) General: sedated HEENT: Pupils equal, Pupils reactive Neck: supple Lungs: Decreased breath sounds, Crackles (to bases) Cardiovascular: Regular Rate, Regular Rhythm, Murmurs (grade 3 systolic) Abdomen: bowel sounds present, soft (Female) Exam: Other (murillo cath with 20cc of urine output ) Extremities: other (pillows removed from under legs/ankles; legs/ankles are equal lengths; no discrepancies noted, no rotation of either leg. ) Peripheral Pulses: 2+: dorsalis pedis (L), dorsalis pedis (R) Skin: warm, dry, other (fistula to lt forearm; ecchymosis bilat forearms) Neurological: other (sedated and on ventilator) - Problem List Review Problem List Initiated/Reviewed/Updated: Yes - Plan Plan:: Respiratory failure with hypoxia- worsening hypercapnia, ? benzodiazapine use. Bipap attempted with worsening hypercapnia on ABG. Patient intubated overnight. PO2 continues to drop. -Concern for pulmonary edema- no acute infiltrates noted on CXR. -Started nitro drip to assist with HTN and likely pulmonary edema as contributing factor. HTN- hydralazine given in ED and x 1 overnight; worsening b/p this morining -Patient in need of dialysis today -Nitro as above -[facility] Acute encephalopathy. CT of the head is negative for any acute intracranial abnormalities noted. Possibly secondary to hypertensive encephalopathy versus progression of her schizoaffective disorder. ESRD. Patient due for dialysis today; due to change in status, will now require bedside dialysis and transfer to higher level of care that provides this service. Contacted [facility] Hospitalist service, spoke with Dr. Siddiqui, who is in agreement to accept patient in transfer. Patient will be transferred today via med flight to ICU direct admission. Patient is full code according to assisted-living records; family in agreement to transfer to higher level of care. DVT prophylaxis with subcutaneous Lovenox
[2016-12-06 11:57] VITALS: BP 140/64
--- NOTE | 2016-12-06 15:33 | PCM.DCSUM1 ---
Discharge Summary - Hospital Course Free Text/Narrative:: Patient was admitted from ER yesterday with AMS, fluctuating mental status for the last few weeks, HTN and renal failure. Dr. Miller reviewed case with Dr. Prince, Nephrology and Dr. Sharpe, PCP who both agreed to admission here at [facility] for SNF placement, b/p control and eval of AMS with plans for having dialysis tomorrow as regularly scheduled in [place]. Patient continued to have intermittent episodes of lethargy last evening. She had an unwitnessed fall, head CT was negative for acute findings. She continued to be lethargic, developed hypoxia and became essentially unresponsive. Supplemental oxygen was placed. ABG was obtained showing acidosis. Bipap was tried with repeat ABG's showing worsening acidosis. She was subsequently intubated and transferred to ICU. ABG this morning is repeated- see labs for details. Respiratory failure with hypoxia- worsening hypercapnia, ? benzodiazapine use. Bipap attempted with worsening hypercapnia on ABG. Patient intubated overnight. PO2 continues to drop. -Concern for pulmonary edema- no acute infiltrates noted on CXR. -Started nitro drip to assist with HTN and likely pulmonary edema as contributing factor. HTN- hydralazine given in ED and x 1 overnight; worsening b/p this morining -Patient in need of dialysis today -Nitro as above -Transfer to [facility] Acute encephalopathy. CT of the head is negative for any acute intracranial abnormalities noted. Possibly secondary to hypertensive encephalopathy versus progression of her schizoaffective disorder. ESRD. Patient due for dialysis today; due to change in status, will now require bedside dialysis and transfer to higher level of care that provides this service. Contacted [facility] Hospitalist service, spoke with Dr. Siddiqui, who is in agreement to accept patient in transfer. Patient will be transferred today via med flight to ICU direct admission. Patient is full code according to assisted-living records; family in agreement to transfer to higher level of care. - Discharge Data Discharge Date: 12/06/16 Discharge Disposition: DC/Tfer to Acute Hospital 02 Condition: Stable - Discharge Diagnosis/Problem(s) (1) Acute encephalopathy SNOMED Code(s): 8009091 ICD Code: G93.40 - ENCEPHALOPATHY, UNSPECIFIED Status: Acute (2) Hypertensive urgency SNOMED Code(s): 466470374 ICD Code: I16.0 - HYPERTENSIVE URGENCY Status: Acute (3) Fluid overload SNOMED Code(s): 13807720 ICD Code: E87.70 - FLUID OVERLOAD, UNSPECIFIED Status: Acute Qualifiers: Hypervolemia type: unspecified Qualified Code(s): E87.70 - Fluid overload, unspecified - Patient Summary/Data Consults: Consultations 12/05/16 13:29 OT Evaluation and Treatment [CONS] Routine PT Evaluation and Treatment [CONS] Routine - Discharge Plan Home Medications: Home Meds Cinacalcet [Sensipar] 90 mg PO DAILY 04/30/14 [History] Gabapentin [Neurontin] 400 mg PO TID 04/30/14 [History] Hydrocodone/Acetaminophen [Hydrocodone-Acetaminophen 5-325] 1 tab PO Q6H PRN [History] Ranitidine HCl 300 mg PO BID 04/30/14 [History] Sodium Bicarbonate 650 mg PO TID 04/30/14 [History] Trifluoperazine 5 mg PO DAILY 04/30/14 [History] Omeprazole 20 mg PO DAILY 03/15/16 [History] Carboxymethylcellulose Sodium [Refresh Tears] 1 drop EYEBOTH TID PRN 06/18/16 [ History] Folic Acid/Vitamin B Comp W-C [Renal Caps Softgel] 1 cap PO DAILY 06/18/16 [ History] Polyethylene Glycol 3350 [MiraLAX] 17 gm PO DAILY PRN 06/18/16 [History] Eucalyptus Body Lotion 1 gram TOP DAILY 09/08/16 [History] Acetaminophen [Tylenol Arthritis Pain] 650 mg PO Q4H PRN 11/02/16 [History] traMADol HCl [Tramadol HCl] 50 mg PO QID PRN 11/02/16 [History] Cephalexin [Keflex] 500 mg PO TID #21 cap 11/30/16 [Rx] Metoprolol Tartrate 25 mg PO BID 11/30/16 [History] Alpha Lipoic Acid 600 mg PO DAILY 12/05/16 [History] Calcium Acetate 667 mg PO TID 12/05/16 [History] Carboxymethyl/Gly/Poly80/Pf [Refresh Optive Advanced Drops] 1 drp EYEBOTH TID [History] Citalopram Hydrobromide [Citalopram HBr] 20 mg PO DAILY 12/05/16 [History] ClonazePAM [KlonoPIN] 0.5 mg PO BID 12/05/16 [History] ClonazePAM [KlonoPIN] 0.5 mg PO Q4H PRN 12/05/16 [History] Docusate Sodium [Colace] 200 mg PO DAILY 12/05/16 [History] Ferrous Sulfate 325 mg PO BID 12/05/16 [History] Fluticasone Propionate [Flonase] 1 spray NASBOTH BID PRN 12/05/16 [History] Lisinopril [Zestril] 40 mg PO DAILY 12/05/16 [History] Mylanta. 2 tsp PO Q4H PRN 12/05/16 [History] Non-Formulary Medication [NF Drug] 25 mg IM ASDIRECTED 12/05/16 [History] Forms: ED Department Discharge Referrals: Noah Sharpe MD [Primary Care Provider] - - Discharge Summary/Plan Comment DC Time >30 min.: Yes - Patient Data Vitals - Most Recent: Last Vital Signs Temp 36.7 C 12/06/16 11:38 Pulse 68 12/06/16 11:56 Resp 15 12/06/16 11:56 BP 140/64 12/06/16 11:56 Pulse Ox 97 12/06/16 11:56 Weight - Most Recent: 59.2 kg I&O - Last 24 hours: Intake & Output 12/06/16 12/06/16 12/06/16 06:59 14:59 22:59 Intake Total 70 Output Total 10 Balance 70 -10 Lab Results - Last 24 hrs: Laboratory Results - last 24 hr 12/05/16 12/06/16 12/06/16 Range/Units 21:49 00:00 02:00 WBC (3.98-10.04) K/mm3 RBC (3.98-5.22) M/mm3 Hgb (11.2-15.7) gm/L Hct (34.1-44.9) % MCV (79.4-94.8) fl MCH (25.6-32.2) pg MCHC (32.2-35.5) g/dl RDW Std Deviation (36.4-46.3) fL Plt Count (182-369) K/mm3 MPV (9.4-12.3) fl Puncture Site Rt radial Rt radial Rt radial ABG pH 7.23 L 7.23 L 7.22 L (7.35-7.45) ABG pCO2 85.5 H* 81.8 H* 84.5 H* (35.0-45.0) mmHg ABG pO2 67.0 L 84.0 87.0 (80.0-100.0) mmHg ABG HCO3 34.4 H 33.0 H 33.6 H (22.0-26.0) meq/L ABG O2 Saturation 94.7 L 96.9 97.3 H (96.0-97.0) % ABG Base Excess 5.2 H 3.4 H 3.6 H (-2-2.0) Jerry Test Positive Positive A-a Gradient 83 77 mmHg O2 Delivery Device Nasal cannula Bipap Bipap Oxygen Flow Rate 2.0 FiO2 0.00 L 40.00 40.00 (21.00-100.00) % Tidal Volume cc PEEP cmH20 Sodium (136-145) mEq/L Potassium (3.5-5.1) mEq/L Chloride (98-107) mEq/L Carbon Dioxide (21-32) mEq/L Anion Gap (5-15) BUN (7-18) mg/dL Creatinine (0.55-1.02) mg/dL Est Cr Clr Drug Dosing mL/min Estimated GFR (MDRD) (>60) mL/min BUN/Creatinine Ratio (14-18) Glucose (83-115) mg/dL Calcium (8.5-10.1) mg/dL 12/06/16 12/06/16 12/06/16 Range/Units 04:19 04:36 04:36 WBC 5.54 (3.98-10.04) K/mm3 RBC 3.58 L (3.98-5.22) M/mm3 Hgb 11.5 (11.2-15.7) gm/L Hct 38.9 (34.1-44.9) % MCV 108.7 H (79.4-94.8) fl MCH 32.1 (25.6-32.2) pg MCHC 29.6 L (32.2-35.5) g/dl RDW Std Deviation 59.8 H (36.4-46.3) fL Plt Count 126 L (182-369) K/mm3 MPV 11.6 (9.4-12.3) fl Puncture Site Rt radial ABG pH 7.41 (7.35-7.45) ABG pCO2 51.4 H (35.0-45.0) mmHg ABG pO2 44.0 L (80.0-100.0) mmHg ABG HCO3 32.1 H (22.0-26.0) meq/L ABG O2 Saturation 87.7 L (96.0-97.0) % ABG Base Excess 6.8 H (-2-2.0) Jerry Test Positive A-a Gradient mmHg O2 Delivery Device Ventilator Oxygen Flow Rate FiO2 0.00 L (21.00-100.00) % Tidal Volume 400.0 cc PEEP 5.0 cmH20 Sodium 141 (136-145) mEq/L Potassium 4.6 (3.5-5.1) mEq/L Chloride 102 (98-107) mEq/L Carbon Dioxide 33 H (21-32) mEq/L Anion Gap 10.6 (5-15) BUN 26 H (7-18) mg/dL Creatinine 5.2 H (0.55-1.02) mg/dL Est Cr Clr Drug Dosing 7.13 mL/min Estimated GFR (MDRD) 8 (>60) mL/min BUN/Creatinine Ratio 5.0 L (14-18) Glucose 88 (83-115) mg/dL Calcium 9.5 (8.5-10.1) mg/dL 12/06/16 12/06/16 Range/Units 08:45 09:49 WBC (3.98-10.04) K/mm3 RBC (3.98-5.22) M/mm3 Hgb (11.2-15.7) gm/L Hct (34.1-44.9) % MCV (79.4-94.8) fl MCH (25.6-32.2) pg MCHC (32.2-35.5) g/dl RDW Std Deviation (36.4-46.3) fL Plt Count (182-369) K/mm3 MPV (9.4-12.3) fl Puncture Site Rt radial Rt radial ABG pH 7.51 H 7.49 H (7.35-7.45) ABG pCO2 38.0 40.3 (35.0-45.0) mmHg ABG pO2 47.0 L 57.0 L (80.0-100.0) mmHg ABG HCO3 30.1 H 30.5 H (22.0-26.0) meq/L ABG O2 Saturation 92.7 L 95.3 L (96.0-97.0) % ABG Base Excess 6.9 H 6.9 H (-2-2.0) Jerry Test A-a Gradient 74 129 mmHg O2 Delivery Device Ventilator Ventilator Oxygen Flow Rate FiO2 25.00 35.00 (21.00-100.00) % Tidal Volume 400.0 400.0 cc PEEP 5.0 5.0 cmH20 Sodium (136-145) mEq/L Potassium (3.5-5.1) mEq/L Chloride (98-107) mEq/L Carbon Dioxide (21-32) mEq/L Anion Gap (5-15) BUN (7-18) mg/dL Creatinine (0.55-1.02) mg/dL Est Cr Clr Drug Dosing mL/min Estimated GFR (MDRD) (>60) mL/min BUN/Creatinine Ratio (14-18) Glucose (83-115) mg/dL Calcium (8.5-10.1) mg/dL Med Orders - Current: Current Medications Discontinued Medications Acetaminophen (Tylenol) 650 mg PO Q4H PRN PRN Reason: Pain (Mild 1-3)/fever Bisacodyl (Dulcolax) 10 mg RECTAL DAILY PRN PRN Reason: Constipation Calcium Acetate (Phoslo) 667 mg PO TID [facility] Last Admin: 12/06/16 10:20 Dose: 667 mg Cephalexin (Keflex) 500 mg PO TID [facility] Stop: 12/07/16 15:01 Last Admin: 12/05/16 15:26 Dose: 500 mg Cephalexin (Keflex) 500 mg PO TID [facility] Stop: 12/08/16 15:01 Last Admin: 12/06/16 10:21 Dose: 500 mg Citalopram Hydrobromide (Celexa) 20 mg PO DAILY [facility] Last Admin: 12/06/16 10:22 Dose: 20 mg Clonazepam (Klonopin) 0.5 mg PO Q4H PRN PRN Reason: Anxiety Clonazepam (Klonopin) 0.5 mg PO BID [facility] Last Admin: 12/06/16 10:22 Dose: Not Given Diphtheria/Tetanus/Acell Pertussis (Boostrix) 0.5 ml IM .ONCE ONE Stop: 12/05/16 15:53 Docusate Sodium (Colace) 200 mg PO DAILY [facility] Last Admin: 12/06/16 10:22 Dose: Not Given Enoxaparin Sodium (Lovenox) 30 mg SUBCUT DAILY [facility] Last Admin: 12/06/16 10:23 Dose: 30 mg Famotidine (Pepcid) 20 mg PO BID [facility] Last Admin: 12/06/16 10:18 Dose: 20 mg Ferrous Sulfate (Ferrous Sulfate) 325 mg PO BID [facility] Last Admin: 12/06/16 10:22 Dose: Not Given Furosemide (Lasix) 20 mg IVPUSH NOW ONE Stop: 12/05/16 13:33 Last Admin: 12/05/16 15:26 Dose: 20 mg Furosemide (Lasix) 40 mg IVPUSH NOW STA Stop: 12/06/16 10:10 Last Admin: 12/06/16 10:28 Dose: 40 mg Hydralazine HCl (Apresoline) 10 mg IVPUSH ONETIME ONE Stop: 12/05/16 10:21 Last Admin: 12/05/16 10:35 Dose: 10 mg Hydralazine HCl (Apresoline) 10 mg PO Q6H PRN PRN Reason: systolic BP>180 or diast>105 Hydralazine HCl (Apresoline) 10 mg IVPUSH ONETIME ONE Stop: 12/06/16 06:31 Last Admin: 12/06/16 06:57 Dose: 20 mg Sodium Chloride (Normal Saline) 1,000 mls @ 125 mls/hr IV ASDIRECTED [facility] Last Admin: 12/05/16 10:38 Dose: 125 mls/hr Propofol (Diprivan 100 Ml) Confirm Administered Dose 100 mls @ as directed .ROUTE .STK-MED ONE Stop: 12/06/16 02:04 Last Admin: 12/06/16 02:10 Dose: Not Given Propofol (Diprivan 100 Ml) 100 mls @ 1.98 mls/hr IV TITRATE LISA; 5 MCG/KG/MIN PRN Reason: Protocol Last Admin: 12/06/16 11:55 Dose: 45 mcg/kg/min, 17.82 mls/hr Nitroglycerin/Dextrose (Nitroglycerin 25 Mg/D5w 250 Ml) 25 mg in 250 mls @ 45 mls/hr IV TITRATE LISA; 75 MCG/MIN PRN Reason: Protocol Last Titration: 12/06/16 11:44 Dose: 2.5 mcg/min, 1.5 mls/hr Nitroglycerin/Dextrose (Nitroglycerin 25 Mg/D5w 250 Ml) Confirm Administered Dose 25 mg in 250 mls @ as directed .ROUTE .STK-MED ONE Stop: 12/06/16 09:49 Last Admin: 12/06/16 10:04 Dose: Not Given Lisinopril (Prinivil) 40 mg PO DAILY [facility] Last Admin: 12/06/16 10:19 Dose: 40 mg Metoprolol Tartrate (Lopressor) 25 mg PO BID [facility] Last Admin: 12/06/16 10:19 Dose: 25 mg Non-Formulary Medication (Acetaminophen) 650 mg PO Q4H PRN PRN Reason: Pain Ondansetron HCl (Zofran) 4 mg IVPUSH ONETIME ONE Stop: 12/05/16 11:41 Last Admin: 12/05/16 11:44 Dose: 4 mg Pantoprazole Sodium (Protonix) 40 mg PO DAILY [facility] Last Admin: 12/06/16 10:22 Dose: 40 mg Cinacalcet [Sensipar (] 90 Mg) 0 each PO DAILY [facility] Last Admin: 12/06/16 10:23 Dose: Not Given Carboxymethylcellulo (se Sodium 1 Drop) 0 each EYEBOTH TID PRN PRN Reason: Dry Eyes Alpha Lipoic Acid [ Alpha Lipoic Acid] 600 Mg 0 each PO DAILY [facility] Last Admin: 12/06/16 10:23 Dose: Not Given Mylanta. 2 Tsp 0 each PO Q4H PRN PRN Reason: Abdominal Pain Risperidone (Injection) 0 each IM ASDIRECTED [facility] Polyethylene Glycol (Miralax) 17 gm PO DAILY PRN PRN Reason: Constipation Propofol (Diprivan 20 Ml) 40 mg IVPUSH ONETIME ONE Stop: 12/06/16 02:01 Last Admin: 12/06/16 04:05 Dose: Not Given Sodium Bicarbonate (Sodium Bicarbonate) 650 mg PO TID [facility] Last Admin: 12/06/16 10:27 Dose: 650 mg Sodium Chloride (Saline Flush) 10 ml FLUSH ASDIRECTED PRN PRN Reason: Keep Vein Open Last Admin: 12/05/16 10:37 Dose: 10 ml Trifluoperazine HCl (Trifluoperazine) 5 mg PO BEDTIME LISA Last Admin: 12/05/16 21:32 Dose: 5 mg *Q Meaningful Use (DIS) - VTE *Q VTE Criteria *Q: - Stroke *Q Stroke Criteria *Q: - AMI *Q AMI Criteria *Q:
== END 2016-12-06 12:45 | DRG 304 ==
LOC: JD.ED 10:09 → JD.MS 12:57 → JD.ICU 22:00 → JD.MS 22:28
PROVIDERS: ADMIT Internal Medicine; ATTEND Internal Medicine
PROC: 0BH18EZ Insertion of Endotracheal Airway into Trachea, Via Natural or Artificial Opening Endoscopic (ICD-10-PCS; principal; 2016-12-05)
PROC: 5A1935Z Respiratory Ventilation, Less than 24 Consecutive Hours (ICD-10-PCS; 2016-12-05)
PROC: 5A09357 Assistance with Respiratory Ventilation, Less than 24 Consecutive Hours, Continuous Positive Airway Pressure (ICD-10-PCS; 2016-12-05)
DX: I16.0 Hypertensive urgency (principal); R53.1 Weakness; R41.0 Disorientation, unspecified; N18.6 End stage renal disease; G93.40 Encephalopathy, unspecified; J96.91 Respiratory failure, unspecified with hypoxia; J98.11 Atelectasis; R41.82 Altered mental status, unspecified; I12.0 Hypertensive chronic kidney disease with stage 5 chronic kidney disease or end stage renal disease; E11.22 Type 2 diabetes mellitus with diabetic chronic kidney disease; E11.42 Type 2 diabetes mellitus with diabetic polyneuropathy; Z99.2 Dependence on renal dialysis; J44.9 Chronic obstructive pulmonary disease, unspecified; K21.9 Gastro-esophageal reflux disease without esophagitis; W19.XXXA Unspecified fall, initial encounter; E87.70 Fluid overload, unspecified; F20.9 Schizophrenia, unspecified; H04.129 Dry eye syndrome of unspecified lacrimal gland; L57.0 Actinic keratosis; M19.90 Unspecified osteoarthritis, unspecified site; D50.9 Iron deficiency anemia, unspecified; G89.29 Other chronic pain; Z87.891 Personal history of nicotine dependence; Z79.899 Other long term (current) drug therapy; I50.9 Heart failure, unspecified
CPT/HCPCS: 36415; 70450; 71010; 80053; 81001; 83880; 84484; 85025; 87086; 93005; 96361; 96374; 96375; 99285; J0360; J2405; J7040; J7050; 36600; 73502-26-LT; 73502-LT; 80048; 82803; 85027; 93306; 94002; 94660; 94760; 97162-GP; 99284; A9270-GY; J1650; J1940; J3490